=== PATIENT | female | born 1940 | race Caucasian/White ===

== ENCOUNTER 2016-11-15 14:27 | Inpatient (IN) | payer MEDICARE ==
[2016-11-15] VITALS (11 sets, daily range): BP systolic 134–157; BP diastolic 49–99; PULSE 66–141; RESP 15–20; O2SAT 95–99
[~2016-11-15] VITALS: Ht 165.1 cm; Wt 88.3 kg
[~2016-11-15 14:27] MED LIST: ALPR.25T PO; AMLO-39 PO; AZIT250T2 PO; LISI1TAB PO; METO50TA PO; MULT-64 PO
--- NOTE | 2016-11-15 15:04 | ED.REPORT ---
HPI-Chest Pain 40 and Over Date of Service Nov 15, 2016 ED Provider: Tra Barber MD Pt is a 76 y/o female w/ a hx of HTN presenting to the ED c/o fatigue onset 2 days ago. She c/o associated mild heart palpitations. Pt denies SOB, CP, nausea , vomiting. She has no diagnosed history of atrial fibrillation, is not anticoagulated, and does not drink alcohol. She has a family history of a-fib. Nursing Notes Stated Complaint: IRREGULAR HEART RHYTHM/SENT FROM [facility] Chief Complaint: Dysrhythmia/Cardiac Nursing Notes Reviewed: Yes Allergies: Coded Allergies: Sulfa (Sulfonamide Antibiotics) (Verified Allergy, Unknown, 11/15/16) Scheduled (["magnesium"]) Unknown Dose PO DAILY (["vit B"]) Unknown Dose PO DAILY (["thyroid supplement"]) Unknown Dose PO DAILY Amlodipine (Amlodipine) 10 Mg Tablet 10 MG PO DAILY Aspirin (Aspirin) 81 Mg Tablet 81 MG PO DAILY Losartan Potassium (Losartan Potassium) 50 Mg Tablet 50 MG PO DAILY Metoprolol Tartrate (Metoprolol Tartrate) 50 Mg Tablet 50 MG PO BID Scheduled PRN Alprazolam (Alprazolam) 0.25 Mg Tablet 0.25 MG PO BID PRN PRN For Anxiety General Time Seen by MD: 15:03 Chief Complaint Other (fatigue) Hx Obtained From: Patient Arrived By: Walk-in Sudden in Onset?: No Onset Occurred: 2 days ago Symptom Duration: Since onset Severity: Current: No pain currently Severity: Maximum: No pain Recent Healthcare: No recent hospitalization Similar Sx Previous: No Past Medical History Past Medical History Hypertension Probable COPD Hx pneumonia Hx UTI Depression Anxiety Past Surgical History Cataract Smoking History Never Smoker Ambulatory Status Independent Review of Systems Constitutional: Reports: Fatigue Respiratory: Denies: Shortness of breath Cardiovascular: Reports: Palpitations, Denies: Chest pain GI: Denies: Abdominal pain, Nausea, Vomiting Complete sys rev & neg: except as marked. Physical Exam Initial Vital Signs Vital Signs (First) Date Time Temp Pulse Resp B/P Pulse Ox O2 Delivery O2 Flow Rate FiO2 11/15/16 14:31 36.9 135 15 152/89 98 Room Air Initial VS: Reviewed, Vital signs abnormal Head / Eyes: Atraumatic, Normocephalic ENT: Mucous membranes moist, Conjunctiva normal, No scleral icterus Neck: Supple, Full range of motion Extremities: Vascular intact, Neuro intact, No swelling Skin: Warm, Dry, No cyanosis Neurologic: Alert, Oriented, Nonfocal Psychiatric: Mood/affect normal, Behavior normal, Normal thought content General/Constitutional: Awake, Alert, No acute distress, Well appearing, Cooperative, Not toxic appearing Respiratory / Chest: Breath sounds NL, Breath sounds = bilat, No respiratory distress, No rales, No rhonchi, No wheezing Cardiovascular: Heart sounds NL Heart Rate / Rhythm: Positive: Irreg irregular rhythm, Tachycardia Abdomen: Atraumatic, Soft, Non-tender Interpretation & Diagnostics Lab Results Interpretation Result Diagram: 11/15/16 1522 11/15/16 1522 Test 11/15/16 15:01 11/15/16 15:22 11/15/16 15:29 11/15/16 17:16 Thyroid Stimulating Hormone (TSH) 3.030uIU/mL (0.450-4.500) Free Thyroxine 1.25ng/dL (0.82-1.77) White Blood Count 9.8th/mm3 (3.8-10.1) Red Blood Count 4.44mil/mm3 (3.90-5.20) Hemoglobin 14.1g/dL (12.0-15.6) Hematocrit 42.3% (35.0-46.0) Mean Corpuscular Volume 95.3fL (81-100) Mean Corpuscular Hemoglobin 31.8pg (27.0-35.0) Mean Corpuscular Hemoglobin Concent 33.3% (32.0-37.0) Red Cell Distribution Width 12.5% (12.3-15.4) Platelet Count 274bil/L (150-400) Neutrophils (%) (Auto) 66.7% (40-74) Lymphocytes (%) (Auto) 19.1% (14-46) Monocytes (%) (Auto) 12.8% (4-12) Eosinophils (%) (Auto) 0.9% (0-5) Basophils (%) (Auto) 0.3% (0-3) Sodium Level 132mEq/L (134-144) Potassium Level 4.5mEq/L (3.5-5.2) Chloride Level 91mEq/L (97-108) Carbon Dioxide Level 22mmol/L (18-29) Blood Urea Nitrogen 16mg/dL (8-27) Creatinine 0.61mg/dL (0.57-1.00) Estimat Glomerular Filtration Rate 137mL/min (>59) Glucose Level 111mg/dL (60-99) Calcium Level 10.2mg/dL (8.5-10.1) Magnesium Level 2.0mg/dL (1.6-2.6) Total Bilirubin 0.4mg/dL (0.0-1.2) Aspartate Amino Transf (AST/SGOT) 23U/L (0-50) Alanine Aminotransferase (ALT/SGPT) 19U/L (0-32) Alkaline Phosphatase 86U/L (25-165) Troponin T < 0.010ug/L (0.0-0.011) Total Protein 8.1g/dL (6.4-8.4) Albumin 4.7g/dL (3.4-5.0) Hold Urine Received (Received) Urine Color Yellow (YELLOW) Urine Appearance Clear (CLEAR,HAZY) Urine pH 6.0 (5.0-8.0) Urine Specific [place] 1.020 (1.003-1.035) Urine Protein Tracemg/dL (NEG,TRACE) Urine Glucose (UA) Negativemg/dL (NEGATIVE) Urine Ketones Negativemg/dL (NEGATIVE) Urine Occult Blood Trace (NEGATIVE) Urine Nitrite Negative (NEGATIVE) Urine Bilirubin Negative (NEGATIVE) Urine Urobilinogen Normalmg/dL (NORMAL) Urine Leukocyte Esterase Negative (NEGATIVE) Urine RBC 3-10/hpf (0-2) Urine WBC 0-5/hpf (0-5) Urine Epithelial Cells Moderate/hpf (NONE-MOD) Urine Crystals None seen (NONE SEEN) Urine Bacteria Few/hpf (NONE-FEW) Urine Hyaline Casts None/lpf (NONE) Urine Granular Casts None seen (NONE SEEN) Urine Waxy Casts None seen (NONE SEEN) Urine Red Blood Cell Casts None seen (NONE SEEN) Urine White Blood Cell Casts None seen (NONE SEEN) Urine Mucus Present (None Seen) Urine Trichomonas None seen (NONE SEEN) Urine Yeast None (NONE SEEN) Urinalysis Comment None Urine Culture Reflexed Not indicated ECG Interpretation ECG Interpretation: Atrial fibrillation with RvR rate 129 Time: 15:05 Interpreted by: ED physician Normal ECG Interpretation: No acute ischemic changes X-Ray Chest Interpretation Chest Xray Interpretation: IMPRESSION: No CHF found, mildly reduced inspiratory volume. Dictated by: Itz Hernandez M.D. on 11/15/2016 at 16:37 Approved by: Itz Hernandez M.D. on 11/15/2016 at 16:37 View: Portable, 1 view Interpretation / Wet Read by: Interpret - Radiologist Re-Eval/Medical Decision Med Decision/Clinical Course 76-year-old female history of hypertension presenting with palpitations and fatigue for several days. On arrival she was in atrial fibrillation with RVR. She was given multiple doses of diltiazem with no improvement. She was placed on a diltiazem drip and admitted to the hospital for age of fibrillation with RVR. This is a new diagnosis of atrial fibrillation. Placed on a heparin drip. Time of Eval: 15:48 Re-Evaluation/Progress Note: Pt rechecked. After 10 mg Diltiazem rate still in 120s. BP stable. Time of Eval: 16:25 Re-Evaluation/Progress Note: Pt rechecked. HR remains 120 despite more Diltiazem. Informed pt of need for admission. Pt understands and agrees with plan for admission. All questions addressed. Consultation : Referral / Consult Name: Bryanna Triplett Mark MONCADA Consulted With: Hospitalist Call Returned at: 17:03 Bag End Sewer: Will see patient, Agrees with eval, Agrees with plan, Accepts admit Counseled Regarding: Diagnosis, Lab results, Need for admission Discharge & Departure Primary Impression: Atrial fibrillation with rapid ventricular response Additional Impression: New onset atrial fibrillation Disposition: ADMITTED TO HOSPITAL Discharge Condition All VS Reviewed: Yes Condition: Stable Referrals: Miguelangel Fitzpatrick MD (PCP) Crit Care Except Billable Proc Time Spent: 30-74 minutes Services Performed: Patient management by me, Time spent at bedside, Reviewing test results, Reviewing imaging, Discussing patient care, Documentation in record, Time with fam/surrogate Critical Care Notes: 45 minutes, requiring diltiazem drip Scribe Attestation Portions of this note were transcribed by Contreras Atkinson. I, Dr. Barber personally performed the history, physical exam and medical decision-making; I reviewed and confirmed the accuracy of the information in the transcribed note. copies to: Miguelangel Fitzpatrick MD, Ben M MD Nov 15, 2016 15:04 CONTRERAS ATKINSON Nov 15, 2016 15:11
[2016-11-15] MEDS ORDERED: Diltiazem 5 mg/mL 5 mL Inj IVPUSH ONE ×2 (15:15→15:50)
[2016-11-15 15:25] LABS: BASOPHILS % (AUTO) 0.3 % (0-3); EOSINOPHILS % (AUTO) 0.9 % (0-5); MONOCYTES % (AUTO) 12.8 % (4-12); Mean Corpuscular Hemoglobin 31.8 pg (27.0-35.0); Mean Corpuscular Volume 95.3 fL (81-100); NEUTROPHILS % (AUTO) 66.7 % (40-74); Platelet Count 274 bil/L (150-400)
[2016-11-15 15:50] LABS: TROPONIN T < 0.010 ug/L (0.0-0.011)
--- NOTE | 2016-11-15 16:38 | DRSVH ---
PROCEDURE: X-RAY CHEST ONE VIEW, PORTABLE ([id number]) INDICATIONS: irregular heart rate TECHNIQUE: One view of the chest was acquired. COMPARISON: [facility], , CHEST 1VW (PORTABLE), 06/22/2010, 23:37. FINDINGS: Surgical changes and devices: None. Lungs and pleura: No pleural effusions or pneumothorax. Lungs are clear. Mediastinum: Mediastinal contours appear normal. Heart size is normal. Bones and chest wall: No suspicious bony lesions. Overlying soft tissues appear unremarkable. IMPRESSION: No CHF found, mildly reduced inspiratory volume. Dictated by: Itz Hernandez M.D. on 11/15/2016 at 16:37 Approved by: Itz Hernandez M.D. on 11/15/2016 at 16:37
[2016-11-15] MEDS ORDERED: Diltiazem Inj 125 MG in Dextrose 5% 100 ML IV SCH (16:51)
[2016-11-15] MEDS ORDERED: Ondansetron 2 mg/mL 2 mL Inj IVPUSH PRN ×2 (17:15→18:05)
[2016-11-15] MEDS ORDERED: Alum-Mag Hydrox-Simeth 30 mL Suspension PO PRN ×2 (17:15→18:05)
[2016-11-15 17:35] LABS: APPEARANCE,URINE CLEAR (CLEAR,HAZY); COLOR,URINE YELLOW (YELLOW); UROBILINOGEN,URINE NORMAL (NORMAL)
[2016-11-15 17:36] LABS: OCCULT BLOOD,URINE TRACE (NEGATIVE)
[2016-11-15] MEDS ORDERED: Polyethylene Glycol (PEG) 17 Gm Powder PO PRN (18:05)
[2016-11-15] MEDS ORDERED: Diltiazem HCl 125 MG in 0.9% Sodium Chloride 100 ML, Pharmacy To Mix 1 EA IV SCH (18:05)
[2016-11-15] MEDS ORDERED: [UNRECOGNIZED DRUG - REMARK] PO PRN (18:10)
--- NOTE | 2016-11-15 18:10 | NUR ---
Admission note Report received from Stefan QUISPE. Patient arrived via wheelchair to room 2002. Patient oriented to room and use of call light. Patient verbalized understanding. Patient Alert and oriented x3. Patient has IV Diltiazem at 5mg/hr. Pt Afib 90s-120s at this time. Ongoing care.
--- NOTE | 2016-11-15 18:19 | PCM.HPMED ---
Subjective Date of Service Nov 15, 2016 Primary Provider: Admitting Physician: Bryanna Triplett DO Primary Care Physician: Vandana Vásquez Attending Physician: Bryanna Triplett DO Admit Status: From the Emergency Department Chief Complaint: Shortness of breath and fatigue History of Present Illness: Iris Mancia is a 76 year old woman with a PMH of HTN, likely COPD, depression, and anxiety who presents with new onset fatigue for the past 2 days. She relates that she has found it more difficult to conduct her daily activities, and that no amount of rest seems to help. She denies chest pain, reports only mild palpitations, denies nausea, vomiting, diarrhea, fevers, chills, or productive cough. She relates that her mother had Afib for many years. In the ED the patient was found to be in Afib with RVR which was unresponsive to IV cardizem x2, thus a Diltiazem drip was initiated which achieved rate control around 100 BPM without adverse effects. The patient is adamant that she is DNR/DNI, and will never take "rat poison" (Warfarin), but would be amenable to a NOAC, and potentially to cardioversion should that be likely to work. Of note the patient reports that her seasonal allergies have been worse of late, and that she usually takes Zyrtec, but 2 days ago took Sudafed. Review of Systems: Comprehensive ROS negative except as outlined above. Allergies Coded Allergies: Sulfa (Sulfonamide Antibiotics) (Verified Allergy, Unknown, 11/15/16) Home Medications Scheduled AmLODIPine-Expunged Drug, Do Not Renew! (AmLODIPine-Expunged Drug, Do Not Renew! ) 5 Mg Tablet 5 MG PO DAILY Azithromycin (Azithromycin) 250 Mg Tablet 250 MG PO DAILY Lisin/HCTZ-Expunged, Do Not Renew! (Lisin/HCTZ 20/12.5-Expunged, Do Not Renew!) 1 Tab Tablet 1 TAB PO DAILY Metoprolol Tart-Expunged Drug, Do Not Renew! (Metoprolol Tart-Expunged Drug, Do Not Renew!) 50 Mg Tablet 50 MG PO BID Multivitamins-Expunged Drug, Do Not Renew! (Multivitamins-Expunged Drug, Do Not Renew!) 1 Each Tab.chew 1 EACH PO DAILY Scheduled PRN Alprazolam-Expunged Drug, Do Not Renew! (Alprazolam-Expunged Drug, Do Not Renew! ) 0.25 Mg Tablet 0.25 MG PO BID PRN PRN PMH Hypertension Probable COPD Hx pneumonia Hx UTI Depression Anxiety Surgical History Cataract surgery Family History Mother with Afib Social History Hx Alcohol Use: No Hx Substance Use: No Hx Tobacco Use: No Smoking Status: Never Smoker Living Arrangement: Independent Prison Exam Vital Signs Vital Sign - Last Date Time Temp Pulse Resp B/P Pulse Ox O2 Delivery O2 Flow Rate FiO2 11/15/16 17:35 125 20 156/99 99 Room Air 11/15/16 14:31 36.9 Exam Gen: A/O pleasant elderly woman in NAD Neck: Supple, non tender, no JVD, full ROM HEENT: prominent facial hair, PERRL, EOMI, no scleral icterus, no conjunctival pallor CV: Irregularly irregular with no murmurs rubs or gallops Resp: Lungs CTA BL, no wheezing rales or rhonchi Abd: No rebound guarding tenderness or masses Extr: No clubbing cyanosis or edema Neuro: CN 2-12 grossly intact, no focal neurologic deficit Psych: Pleasant and appropriate mood and affect. Lab and Diagnostics Labs Item Value Date Time Red Blood Count 4.44 mil/mm3 11/15/16 1522 Mean Corpuscular Volume 95.3 fL 11/15/16 1522 Mean Corpuscular Hemoglobin 31.8 pg 11/15/16 1522 Mean Corpuscular Hemoglobin Concent 33.3 % 11/15/16 1522 Red Cell Distribution Width 12.5 % 11/15/16 1522 Neutrophils (%) (Auto) 66.7 % 11/15/16 1522 Lymphocytes (%) (Auto) 19.1 % 11/15/16 1522 Monocytes (%) (Auto) 12.8 % H 11/15/16 1522 Eosinophils (%) (Auto) 0.9 % 11/15/16 1522 Basophils (%) (Auto) 0.3 % 11/15/16 1522 Estimat Glomerular Filtration Rate 137 mL/min 11/15/16 1522 Calcium Level 10.2 mg/dL H 11/15/16 1522 Magnesium Level 2.0 mg/dL 11/15/16 1522 Total Bilirubin 0.4 mg/dL 11/15/16 1522 Aspartate Amino Transf (AST/SGOT) 23 U/L 11/15/16 1522 Alanine Aminotransferase (ALT/SGPT) 19 U/L 11/15/16 1522 Alkaline Phosphatase 86 U/L 11/15/16 1522 Troponin T < 0.010 ug/L 11/15/16 1522 Total Protein 8.1 g/dL 11/15/16 1522 Albumin 4.7 g/dL 11/15/16 1522 Result Diagram: 11/15/16 1522 11/15/16 1522 X-Rays, CTs and MRIs X-RAY CHEST ONE VIEW, PORTABLE IMPRESSION: No CHF found, mildly reduced inspiratory volume. Dictated by: Itz Hernandez M.D. on 11/15/2016 at 16:37 Approved by: Itz Hernandez M.D. on 11/15/2016 at 16:37 . 12-lead ECG Atrial fibrillation with RvR rate 129 . Assessment & Plan Iris Mancia is a 76 year old patient with a PMH of HTN, and likely COPD who presents with 2 days of fatigue not relieved by rest, found to have Afib with RVR in the ED and admitted for initiation of rate control and anti- coagulation. New onset Afib with RVR, POA, acute. Active -Likely secondary to longstanding HTN, familial disposition, use of Sudafed, or some combination of the these -Diltiazem drip to establish rate control -[id number] score of 4, patient is adamant that she does not want Warfarin -Start Xarelto or another NOAC -Tele monitoring -Continue home Metoprolol -ECHO tomorrow to assess cardiac structure HTN, POA, chronic. Active -Dilt drip as above -Continue home Lisinopril -Hold home Amlodipine as this would be redundant with Dilt -Hold home diuretic to avoid hypotension Anxiety, POA, chronic. Active -Continue home Xanax PRN Allergic Rhinitis, POA, chronic. stable -Consider Zyrtec should patient become symptomatic Patient status: Inpatient, anticipated length of stay > 2 midnights due to severity of condition and complexity of treatment plan. Pain Evaluation: Adequate Pain Control GI Prophylaxis: Not indicated VTE Prophylaxis: Other (Xarelto) Resuscitation Status: DNR/DNI:Do Not Resuscitate/Intubate (xare) Time spent 60 minutes Attending Statement The patient was seen and examined together with Dr. Kelley on 11/15/16 and I have added additional information to the note above. Arben Kelley DO Nov 15, 2016 18:19 Bryanna Triplett DO Nov 16, 2016 15:21
[2016-11-15] MEDS ORDERED: [UNRECOGNIZED DRUG - REMARK] PO (20:03)
[2016-11-15] MEDS ORDERED: ALPR0.254 PO (20:08)
[2016-11-15] MEDS ORDERED: METO50TA3 PO (20:08)
[2016-11-15] MEDS ORDERED: [UNRECOGNIZED DRUG - REMARK] PO (20:08)
[2016-11-15] MEDS ORDERED: ASPI-973 PO (20:08)
[2016-11-15] MEDS ORDERED: [UNRECOGNIZED DRUG - REMARK] PO (20:08)
[2016-11-15] MEDS ORDERED: [UNRECOGNIZED DRUG - REMARK] PO (20:08)
[2016-11-15] MEDS ORDERED: AMLO10TA3 PO (20:08)
[2016-11-15] MEDS ORDERED: LOSA50TA37 PO (20:08)
[2016-11-15] MEDS: Dabigatran 150 mg Capsule PO SCH (20:20)
[2016-11-15] MEDS: ALPRAZolam 0.25 mg Tablet PO PRN (22:48)
[2016-11-16] VITALS (10 sets, daily range): BP systolic 144–150; BP diastolic 44–56; PULSE 61–80; RESP 16–21; O2SAT 96–98
--- NOTE | 2016-11-16 01:08 | NUR ---
Admit: Admission assessment completed via pt interview. Med rec updated via pt interview and Dr. Blood made aware of changes.
--- NOTE | 2016-11-16 01:09 | NUR ---
Conversion to SR: Start of shift Diltizem gtt increased to 10mg/hr as Tele was reading Afib in the 140s. Shortly after @1945 pt converted to SR 60-70s.Gtt decreased to 5mg/hr. Dr. Blood made aware of conversion to SR. states to continue Diltizem gtt overnight and hold HS Metoprolol.
[2016-11-16] MEDS ORDERED: [UNRECOGNIZED DRUG - REMARK] PO SCH (08:30)
[2016-11-16] MEDS ORDERED: [UNRECOGNIZED DRUG - REMARK] PO SCH (08:30)
[2016-11-16] MEDS: Dabigatran 150 mg Capsule PO SCH ×2 (09:28→21:26)
--- NOTE | 2016-11-16 10:10 | NUR ---
Social Work: Initial Assessment Data: Pt is a 76 y/o female admitted for afib with RVR. Pt's PCP is Dr Vásquez. Pt's insurance is [employer] [place] Medicare. EMR reviewed. Readmit score is 3. BILLIARD TABLE ASSEMBLER met with pt at bedside, role explained. Pt states she lives in [place] with her daughter in a single story home with 5 steps to enter. Pt drives, has no DME, has no hx of HH or SNF, no LTC or VA benefits and is not a caregiver. Pt states one of her children will drive her home at d/c. No d/c planning needs identified at this time. BILLIARD TABLE ASSEMBLER will continue to follow if needs arise. Assessment: Pt who is independent at baseline. Plan: Pt will d/c home via POV when medically stable, BILLIARD TABLE ASSEMBLER will follow for possible d/c needs. No d/c planning needs identified at this time. BILLIARD TABLE ASSEMBLER will continue to follow if needs arise. DELMAR Wong Addendum: 11/16/16 at 1012 by PEYMAN CARRILLO Amended: Links added.
[2016-11-16] MEDS ORDERED: 0.9% Sodium Chloride 500 ML IV ONE (11:20)
[2016-11-16] MEDS ORDERED: PRAV20TA2 PO (16:37)
[2016-11-16] MEDS ORDERED: CETI10CA PO (16:37)
--- NOTE | 2016-11-16 17:36 | DRSVH ---
[facility] [address] [place] [address] Echocardiogram Report Name: MAXX ANDINO KStudy Date: 01/2017 Height: 65 in Hospital Exam Location: [facility] Weight: 19 5 lb Gender: Female BSA: 2.0 m2 : 1940 Age: 76 yrs BP: 148/56 mmHg Reason For Study: Atrial fibrillation Ordering Physician: Performed By: Jana Birch Referring Physician: MAURICE ZAMORA Interpretation Summary The left ventricle is normal in size. The left ventricle is hyperdynamic. The ejection fraction is estimated to be 70-75%. The right ventricle is grossly normal size. The right ventricular systolic function is normal. There is mild mitral regurgitation. Compared to the prior echo study, there has been no change in the severity of mitral regurgitation. The aortic valve is not well visualized. The aortic valve is moderately calcified. The peak aortic velocity is 2.7 m/sec. The aortic valve mean gradient is 16 mmHg. The peak aortic velocity on the previous exam was 2.5 m/sec. There is mild aortic stenosis. There is trace tricuspid regurgitation. Compared to the prior echo exam, there has been a decrease in TR severity. The right ventricular systolic pressure is estimated at least 44 mmHg assuming a right atrial pressure of 8 mm Hg. Compared to the prior echo exam, there has been a decrease in the severity of pulmonary hypertension. Procedure: A two-dimensional transthoracic echocardiogram with color flow and Doppler was performed. The study quality was technically adequate. Images from the parasternal window were difficult to obtain and are suboptimal in quality. Comparison is made with the echocardiogram of 07/30/14. The patient was in normal sinus rhythm during the exam. Left Ventricle: There is moderate proximal septal thickening noted. The left ventricle is normal in size. There is no echo evidence for significant left ventricular outflow tract obstruction. There is no thrombus. The ejection fraction is estimated to be 70-75%. The left ventricle is hyperdynamic. There are no focal wall motion abnormalities. E/A ratio is reversed and E/E' ratio is abnormal. Right Ventricle: The right ventricle is grossly normal size. The right ventricular systolic function is normal. Atria: The left atrium is mildly dilated. The left atrium has remained unchanged in size since the prior echo exam. Right atrial size is normal. There is no Doppler evidence for an interatrial shunt. Mitral Valve: There is moderate to severe mitral annular calcification. The mitral valve leaflets are mildly calcified. No significant mitral valve stenosis. There is mild mitral regurgitation. Compared to the prior echo study, there has been no change in the severity of mitral regurgitation. Aortic Valve: The aortic valve is not well visualized. The aortic valve is moderately calcified. There is mild aortic stenosis. The peak aortic velocity is 2.7 m/sec. The peak aortic velocity on the previous exam was 2.5 m/sec. The aortic valve mean gradient is 16 mmHg. No aortic regurgitation is present. Tricuspid Valve: The tricuspid valve is not well visualized, but is grossly normal. There is trace tricuspid regurgitation. The right ventricular systolic pressure is estimated at least 44 mmHg assuming a right atrial pressure of 8 mm Hg. Compared to the prior echo exam, there has been a decrease in TR severity. Compared to the prior echo exam, there has been a decrease in the severity of pulmonary hypertension. Pulmonic Valve: The pulmonic valve is not well visualized. There is no pulmonic valvular regurgitation. Great Vessels: The aortic root is normal size. There is aortic root sclerosis/calcification. The ascending aorta is normal in size. The aortic arch is normal in size. The pulmonary is not well visualized. The IVC is dilated (diameter is greater than 2.1 cm) yet it collapses greater than 50% with a sniff. This suggests a right atrial pressure of 8 mm Hg. Pericardium/ Pleura There is no pericardial effusion. There is no pleural effusion. MMode/2D Measurements & Calculations LVIDd: 4.4 cm RA long axis LVOT diam: 2.0 cm LVIDs: 2.8 cm LA A2 area: 22.9 cm AoV Opening FS: 35.3 % LA A4 area: 19.4 cm RA area EPSS: 0.25 cm LA length (vol) Ao root diam IVSd: 1.5 cm : 16.5 cm LVPWd: 1.0 cm LA vol: 70.4 ml RA vol asc Aorta Diam LA vol index : 45.2 ml RA Ao Arch Diam (Prox : 23.1 mm2 Trans): 2.3 cm IVC diam: 2.3 cm LV melendez. diameter/BSA LV sys. diameter/BSA RVD1 (basal) TAPSE: 2.6 cm (cm/m^2): 2.2 (cm/m^2): 1.4 Doppler Measurements & Calculations Ao V2 max MV E max valeriano MV E/A: 0.89 TR max valeriano : 268.9 cm/sec : 123.1 cm/sec Med Peak E' Valeriano : 301.0 cm/sec Ao max PG MV A max valeriano TR max P.2 mmHg : 28.9 mmHg : 139.0 cm/sec E/E' med: 18.0 PA Accel Time Ao mean PG Lat Peak E' Valeriano : 0.28 sec : 15.9 mmHg MVA(VTI): 2.7 cm2 LVOT Max Valeriano E/E' lat: 14.1 : 160.1 cm/sec E/e' average KALANI(I,D): 2.3 cm sev ratio MV V2 mean Ao V2 mean LV V1 max PG KALANI indexed to BSA : 93.1 cm/sec : 186.2 cm/sec (cm^2/m^2): 1.2 MV mean PG Ao V2 VTI: 53.7 cm LV V1 VTI KALANI(V,D): 1.9 cm2 : 39.3 cm MV V2 VTI: 46.5 cm MV dec time : 0.28 sec Reading Physician:LIMA
--- NOTE | 2016-11-16 17:42 | NUR ---
Cardiac pt switched to PO Diltiazem 60mg Q6hrs. Pt tolerating well at this time. Tele SR 60-80s through the day per refinish technician. No c/o chest pain or dizziness. Ongoing care.
--- NOTE | 2016-11-16 17:45 | PCM.PNMED ---
Subjective Date of Service Nov 16, 2016 Subjective Subjective: Patient sitting up in bed and tearful on exam. She has remained in sinus rhythm since the diltiazem drip was initiated. She states that she has no symptoms currently. Events Overnight: No acute events overnight. ROS: Denies fever/chills, nausea/vomiting, headache, weakness, abdominal pain, chest pain, shortness of breath, increased swelling in hands or feet. Exam Vital Signs Vital Sign - Last Date Time Temp Pulse Resp B/P Pulse Ox O2 Delivery O2 Flow Rate FiO2 11/16/16 16:16 36.9 75 20 148/48 97 Room Air Intake and Output 11/15/16 11/15/16 11/16/16 Cumulative From/Thru 15:00 23:00 07:00 11/15/16 14:31 - 11/16/16 05:34 Intake Total 740 ml 740 ml Output Total 1200 ml 1200 ml Balance -460 ml -460 ml Intake Oral 700 ml 700 ml IV Total 40 ml 40 ml Output Urine Total 1200 ml 1200 ml # Voids 2 2 Exam General: No acute distress, well-developed, well-nourished HEENT: Normocephalic, atraumatic. External ears without defect. Pupils equal, round, and reactive to light and accommodation. Anicteric sclerae, moist conjunctivae. Cardiovascular: Heart sounds best auscultated on the right side. Regular rate and rhythm with systolic murmur, no rubs or gallops appreciated Pulmonary: Clear to auscultation bilaterally with no crackles, wheezes, or rhonchi. Normal respiratory effort with no use of accessory muscles. Abdomen: Bowel tones present. Soft, nontender, nondistended. Extremities: No clubbing, cyanosis, edema Skin: Normal temperature, turgor, and texture; no rash, ulcers, or subcutaneous nodules appreciated. Neurological: Cranial nerves grossly intact. Reflexes, coordination, and sensory function within normal limits. Normal muscle strength, tone, and bulk. Psychiatric: Normal mood and affect. Alert and oriented to person, place, and time IVs and Medications IV Fluids 625 mL normal saline diluted with IV medications. Medications Reviewed: Medications were reviewed in detail Medications High-risk medications include: Diltiazem drip Alprazolam Lab and Diagnostics Result Diagram: 11/15/16 1522 11/15/16 1522 X-Rays, CTs and MRIs X-RAY CHEST ONE VIEW, PORTABLE IMPRESSION: No CHF found, mildly reduced inspiratory volume. Dictated by: Itz Hernandez M.D. on 11/15/2016 at 16:37 Approved by: Itz Hernandez M.D. on 11/15/2016 at 16:37 . 12-lead ECG Atrial fibrillation with RvR rate 129 . Cardiac Echo Impressions Echocardiogram Interpretation Summary The left ventricle is normal in size. The left ventricle is hyperdynamic. The ejection fraction is estimated to be 70-75%. The right ventricle is grossly normal size. The right ventricular systolic function is normal. There is mild mitral regurgitation. Compared to the prior echo study, there has been no change in the severity of mitral regurgitation. The aortic valve is not well visualized. The aortic valve is moderately calcified. The peak aortic velocity is 2.7 m/sec. The aortic valve mean gradient is 16 mmHg. The peak aortic velocity on the previous exam was 2.5 m/sec. There is mild aortic stenosis. There is trace tricuspid regurgitation. Compared to the prior echo exam, there has been a decrease in TR severity. The right ventricular systolic pressure is estimated at least 44 mmHg assuming a right atrial pressure of 8 mm Hg. Compared to the prior echo exam, there has been a decrease in the severity of pulmonary hypertension. Reading Physician:PM . Assessment & Plan Iris Mancia is a 76 year old patient with a PMH of HTN, and likely COPD who presents with 2 days of fatigue not relieved by rest, found to have Afib with RVR in the ED and admitted for initiation of rate control and anti- coagulation. New onset Afib with RVR, POA, acute. Active -Likely secondary to longstanding HTN, familial disposition, use of Sudafed, or some combination of the these -Diltiazem drip to establish rate control, discontinued today and switch to diltiazem PO -Lenen6Hpth score of 4, patient started on Pradaxa -Continue Tele monitoring -Continue home Metoprolol -Echo showed ejection fraction 70-75% further details as above. HTN, POA, chronic. Active -Dilt drip, discontinued in favor of PO every 6hrs, patient will be sent home with diltiazem ER every 12 -Continue home Lisinopril -Hold home Amlodipine as this would be redundant with Dilt -Hold home diuretic to avoid hypotension Anxiety, POA, chronic. Active -Continue home Xanax PRN Allergic Rhinitis, POA, chronic. stable -Consider Zyrtec should patient become symptomatic Of note: Had questions concerning a "thyroid" medication which was prescribed by her chiropractor. Thyroid panel negative for signs of thyroid disease. Not recommended that she continue taking this medication as it may have led to her current condition. Disposition: If patient remains in sinus rhythm for the next 24 hours on PO therapy she may be discharged home at that point GI Prophylaxis: Not indicated VTE Prophylaxis: Other (Xarelto) Resuscitation Status: DNR/DNI:Do Not Resuscitate/Intubate (xare) Attending Statement The patient was seen and examined together with Dr. Jenkins on 11/16/16 and I have added additional information to the note above. Jose E Jenkins DO Nov 16, 2016 17:45 Bryanna Triplett DO Nov 17, 2016 18:43
[2016-11-17] VITALS (8 sets, daily range): BP systolic 134–158; BP diastolic 46–55; PULSE 61–88; RESP 14–19; O2SAT 96–98
[2016-11-17 02:45] LABS: Mean Corpuscular Hemoglobin 31.6 pg (27.0-35.0); Mean Corpuscular Volume 95.7 fL (81-100)
--- NOTE | 2016-11-17 05:43 | NUR ---
Rhythm Stable: Pt stable throughout the night in a NSR in the 60s to 70s receiving PO diltiazem every 6 hours. No complaints per pt during the night except for some neck pain which resolved with Tylenol and repositioning. Pt noted to be up frequently to the [facility] to void.
[2016-11-17] MEDS ORDERED: Diltiazem CD 120 mg ER24 Capsule PO SCH (08:30)
[2016-11-17] MEDS: Dabigatran 150 mg Capsule PO SCH (08:53)
[2016-11-17] MEDS ORDERED: DILT120C83 PO (10:43)
--- NOTE | 2016-11-17 10:57 | PCM.DIMED ---
Jose E Jenkins DO 11/17/16 1057: Discharge Instructions Date of Service Nov 17, 2016 Dates of Hospitalization Nov 15, 2016 at 18:00 Discharge Diagnosis Discharge Diagnosis New onset Afib with RVR, POA, acute. Active HTN, POA, chronic. Active Anxiety, POA, chronic. Active Allergic Rhinitis, POA, chronic. stable Medication Instructions Additional med instructions Please stop the thyroid supplement as previously prescribed as well as your home dose of amlodipine for now. Please continue to take Diltiazem 120mg twice per day as well as Pradaxa 150mg twice per day. Test Results Test Results A chest X-ray completed here showed mildly decreased lung volumes, however, no evidence of congestive heart failure. your echo cardiogram shows ejection fraction to be 70-75% (normal 60-65%) and mild mitral regurgitation. With no change since the prior echo study Diet Discharge Diet: Heart Healthy Activity Discharge Activity: No restrictions Call your provider Call your provider for: Fever or Chills, Shortness of breath, Bleeding, Chest pain, Vomitting, Excessive diarrhea, Weakness (unilateral) Patient Instructions Patient Instructions Feel free to continue normal daily activities as tolerated. follow medication regimen as directed above. This is important to ensure that your heart rhythm stays normal. Continue healthy diet. Follow-up plan Please follow up with your primary care doctor within the next 1-2 weeks. Follow-up Provider: Vandana Vásquez Follow-up with PCP in: 2 weeks Bryanna Triplett DO 11/17/16 1505: Discharge Instructions Attending's Statement The patient was seen and examined together with Dr. Jenkins on 11/17/16 and I agree with the history, exam and plan as outlined in the note above. Jose E Jenkins DO Nov 17, 2016 10:57 Bryanna Triplett DO Nov 17, 2016 15:05
[2016-11-17] MEDS: ALPRAZolam 0.25 mg Tablet PO PRN (10:58)
[2016-11-17] MEDS ORDERED: DABI150C PO (11:32)
--- NOTE | 2016-11-17 11:50 | NUR ---
Social Work Note: Discharge Data& Assessment: Pt was discussed in multidisciplinary rounds this morning, Per pt is medically improved and ready to discharge home via POV. Iris Mancia is a 76 year old female admitted on 11/15/2016 for AFIB with RVR. Per MD pt is medically improved and ready to discharge home via POV. ELECTRONIC INDUCTION HARDENER met with pt and pt daughter Maria Victoria at bedside to confirm discharge plan and assess for any unmet needs. Pt daughter is transporting pt home today. Pt states she is ambulating independently to the [facility] and plans to obtain one privately after she is discharged as she recovers from this hospitalization. Pt feels she is at her baseline. Pt independent with self care during this hospitalization. Pt and pt daughter denies any needs. No other MD orders identified. All updated and agreeable to plan. Plan: Per pt is medically ready to discharge home via POV with family support. Pt and pt daughter denies any needs. No other MD orders identified. All updated and agreeable to plan. DELMAR Lipscomb
--- NOTE | 2016-11-17 14:32 | PCM.DC.MED ---
Discharge Summary Date of Service Nov 17, 2016 Dates of Hospitalization Date of Hospital Admission Nov 15, 2016 at 18:00 Date of Discharge: Nov 17, 2016 Providers: Admitting Physician: Bryanna Triplett DO Primary Care Physician: Vandana Vásquez Attending Physician: Bryanna Triplett DO Diagnosis at Time of Discharge Diagnosis at Time of Discharge New onset Afib with RVR, POA, acute. Resolved HTN, POA, chronic. Active Anxiety, POA, chronic. Active Allergic Rhinitis, POA, chronic. stable Procedures XRay, CTs & MRIs X-RAY CHEST ONE VIEW, PORTABLE IMPRESSION: No CHF found, mildly reduced inspiratory volume. Dictated by: Itz Hernandez M.D. on 11/15/2016 at 16:37 Approved by: Itz Hernandez M.D. on 11/15/2016 at 16:37 . ECG 12 Lead Atrial fibrillation with RvR rate 129 . Cardiac Echo Impression Echocardiogram Interpretation Summary The left ventricle is normal in size. The left ventricle is hyperdynamic. The ejection fraction is estimated to be 70-75%. The right ventricle is grossly normal size. The right ventricular systolic function is normal. There is mild mitral regurgitation. Compared to the prior echo study, there has been no change in the severity of mitral regurgitation. The aortic valve is not well visualized. The aortic valve is moderately calcified. The peak aortic velocity is 2.7 m/sec. The aortic valve mean gradient is 16 mmHg. The peak aortic velocity on the previous exam was 2.5 m/sec. There is mild aortic stenosis. There is trace tricuspid regurgitation. Compared to the prior echo exam, there has been a decrease in TR severity. The right ventricular systolic pressure is estimated at least 44 mmHg assuming a right atrial pressure of 8 mm Hg. Compared to the prior echo exam, there has been a decrease in the severity of pulmonary hypertension. Reading Physician:PM . Brief History Iris Mancia is a 76 year old woman with a PMH of HTN, likely COPD, depression, and anxiety who presents with new onset fatigue for the past 2 days. In the ED the patient was found to be in Afib with RVR which was unresponsive to IV cardizem x2, thus a Diltiazem drip was initiated which achieved rate control around 100 BPM without adverse effects. Pt was switched to oral Diltiazem which was tolerated well. She remained sinus for 24 hrs prior to DC. Pt was started on Pradaxa and will continue taking Diltiazem PO 120mg BID. Of note the patient called stating that her insurance company would not cover Pradaxa therefore the patient was changed to Eliquis. The patient will take 10 mg by mouth twice a day for 7 days and then switch to 5 mg by mouth twice a day daily. The patient has been given a free prescription card for 30 days and has been given the website in order to download a co-pay card. The patient will follow-up with her primary care physician in regards to this and for further management. The patient has also been recommended to follow up with cardiology in the next 4-6 weeks. Hospital Course Iris Mancia is a 76 year old patient with a PMH of HTN, and likely COPD who presents with 2 days of fatigue not relieved by rest, found to have Afib with RVR in the ED and admitted for initiation of rate control and anti- coagulation. New onset Afib with RVR, POA, acute. Active -Likely secondary to longstanding HTN, familial disposition, use of Sudafed, or some combination of the these -Diltiazem drip to establish rate control, discontinued 11/16 and switch to diltiazem PO -Eabfz4Hxlf score of 4, patient started on Eliquis -Initiated home Metoprolol prior to DC -Echo showed ejection fraction 70-75% further details as above. HTN, POA, chronic. Active -Dilt drip, discontinued in favor of PO every 6hrs, patient will be sent home with diltiazem ER every 12 -Continue home Lisinopril -Continue home metoprolol -Hold home Amlodipine as this would be redundant with Dilt -Hold home diuretic to avoid hypotension Anxiety, POA, chronic. Active -Continue home Xanax PRN Allergic Rhinitis, POA, chronic. stable -Consider Zyrtec should patient become symptomatic Of note: Had questions concerning a "thyroid" medication which was recommended by her chiropractor. Thyroid panel negative for signs of thyroid disease. Not recommended that she continue taking this medication as it may have led to her current condition. Exam Vital Signs (Last) Date Time Temp Pulse Resp B/P Pulse Ox O2 Delivery O2 Flow Rate FiO2 11/17/16 12:46 36.8 71 19 134/51 97 Room Air Exam General: No acute distress, well-developed, well-nourished HEENT: Normocephalic, atraumatic. External ears without defect. Pupils equal, round, and reactive to light and accommodation. Anicteric sclerae, moist conjunctivae. Cardiovascular: Heart sounds best auscultated on the right side. Regular rate and rhythm with systolic murmur, no rubs or gallops appreciated Pulmonary: Clear to auscultation bilaterally with no crackles, wheezes, or rhonchi. Normal respiratory effort with no use of accessory muscles. Abdomen: Bowel tones present. Soft, nontender, nondistended. Extremities: No clubbing, cyanosis, edema Skin: Normal temperature, turgor, and texture; no rash, ulcers, or subcutaneous nodules appreciated. Neurological: Cranial nerves grossly intact. Reflexes, coordination, and sensory function within normal limits. Normal muscle strength, tone, and bulk. Psychiatric: Normal mood and affect. Alert and oriented to person, place, and time Test 11/15/16 15:01 11/15/16 15:22 11/15/16 15:29 11/15/16 17:16 Thyroid Stimulating Hormone (TSH) 3.030uIU/mL (0.450-4.500) Free Thyroxine 1.25ng/dL (0.82-1.77) Neutrophils (%) (Auto) 66.7% (40-74) Lymphocytes (%) (Auto) 19.1% (14-46) Monocytes (%) (Auto) 12.8% (4-12) Eosinophils (%) (Auto) 0.9% (0-5) Basophils (%) (Auto) 0.3% (0-3) Magnesium Level 2.0mg/dL (1.6-2.6) Total Bilirubin 0.4mg/dL (0.0-1.2) Aspartate Amino Transf (AST/SGOT) 23U/L (0-50) Alanine Aminotransferase (ALT/SGPT) 19U/L (0-32) Alkaline Phosphatase 86U/L (25-165) Troponin T < 0.010ug/L (0.0-0.011) Total Protein 8.1g/dL (6.4-8.4) Albumin 4.7g/dL (3.4-5.0) Hold Urine Received (Received) Urine Color Yellow (YELLOW) Urine Appearance Clear (CLEAR,HAZY) Urine pH 6.0 (5.0-8.0) Urine Specific [place] 1.020 (1.003-1.035) Urine Protein Tracemg/dL (NEG,TRACE) Urine Glucose (UA) Negativemg/dL (NEGATIVE) Urine Ketones Negativemg/dL (NEGATIVE) Urine Occult Blood Trace (NEGATIVE) Urine Nitrite Negative (NEGATIVE) Urine Bilirubin Negative (NEGATIVE) Urine Urobilinogen Normalmg/dL (NORMAL) Urine Leukocyte Esterase Negative (NEGATIVE) Urine RBC 3-10/hpf (0-2) Urine WBC 0-5/hpf (0-5) Urine Epithelial Cells Moderate/hpf (NONE-MOD) Urine Crystals None seen (NONE SEEN) Urine Bacteria Few/hpf (NONE-FEW) Urine Hyaline Casts None/lpf (NONE) Urine Granular Casts None seen (NONE SEEN) Urine Waxy Casts None seen (NONE SEEN) Urine Red Blood Cell Casts None seen (NONE SEEN) Urine White Blood Cell Casts None seen (NONE SEEN) Urine Mucus Present (None Seen) Urine Trichomonas None seen (NONE SEEN) Urine Yeast None (NONE SEEN) Urinalysis Comment None Urine Culture Reflexed Not indicated Test 11/17/16 02:15 White Blood Count 8.1th/mm3 (3.8-10.1) Red Blood Count 3.93mil/mm3 (3.90-5.20) Hemoglobin 12.4g/dL (12.0-15.6) Hematocrit 37.6% (35.0-46.0) Mean Corpuscular Volume 95.7fL (81-100) Mean Corpuscular Hemoglobin 31.6pg (27.0-35.0) Mean Corpuscular Hemoglobin Concent 33.0% (32.0-37.0) Red Cell Distribution Width 12.4% (12.3-15.4) Platelet Count 236bil/L (150-400) Sodium Level 138mEq/L (134-144) Potassium Level 4.2mEq/L (3.5-5.2) Chloride Level 101mEq/L (97-108) Carbon Dioxide Level 27mmol/L (18-29) Blood Urea Nitrogen 17mg/dL (8-27) Creatinine 0.60mg/dL (0.57-1.00) Estimat Glomerular Filtration Rate 139mL/min (>59) Glucose Level 104mg/dL (60-99) Calcium Level 9.0mg/dL (8.5-10.1) Discharge Medications Discharge Medications (["magnesium"]) Unknown Dose PO DAILY (Reported) (["vit B"]) Unknown Dose PO DAILY (Reported) Aspirin (Aspirin) 81 Mg Tablet 81 MG PO DAILY (Reported) Cetirizine HCl (Zyrtec) 10 Mg Capsule 10 MG PO HS (Reported) Dabigatran Etexilate Mesylate (Pradaxa) 150 Mg Capsule 150 MG PO BID Prescribed by: LEIGHA OCAMPO DO Diltiazem ER (Cardizem CD) 120 Mg Cap.er.24h 120 MG PO BID Prescribed by: LEIGHA OCAMPO DO Losartan Potassium (Losartan Potassium) 50 Mg Tablet 50 MG PO DAILY (Reported) Metoprolol Tartrate (Metoprolol Tartrate) 50 Mg Tablet 50 MG PO BID (Reported) Pravastatin (Pravastatin) 20 Mg Tablet 20 MG PO HS (Reported) As needed Alprazolam (Alprazolam) 0.25 Mg Tablet 0.25 MG PO BID PRN PRN For Anxiety ( Reported) Additional med instructions Please stop the thyroid supplement as previously prescribed as well as your home dose of amlodipine for now. Please continue to take Diltiazem 120mg twice per day as well as Pradaxa 150mg twice per day. Followup Plan Disposition: home Follow-up plan Please follow up with your primary care doctor within the next 1-2 weeks. Discharge Diet: Heart Healthy Discharge Activity: No restrictions Patient Instructions Feel free to continue normal daily activities as tolerated. follow medication regimen as directed above. This is important to ensure that your heart rhythm stays normal. Continue healthy diet. Follow-up Provider: Vandana Vásquez Follow-up with PCP in: 2 weeks Follow-up in: 4 weeks (please follow up with cardiology. If you do not have a aircraft engine technician please discuss this with your primary care provider.) Time spent greater that 35 minutes spent in documentation and coordination of discharge Attending Statement The patient was seen and examined together with Dr. Ocampo on 11/17/16 and I have added additional information to the note above. copies to: Vandana Vásquez Adam J DO Nov 17, 2016 14:32 Bryanna Triplett Nov 17, 2016 18:52
--- NOTE | 2016-11-17 14:39 | NUR ---
Discharge of pt Reviewed discharge instructions with patient and patient's daughter, pt verbalized understanding. pt discharged via wheelchair with prescriptions and instructions. IV and Tele previously discontinued. Pt left hospital with daughter to home selfcare.
== END 2016-11-17 14:15 | disposition home or self-care (01) | DRG 310 ==
LOC: SED 14:27 → PCC 18:00
PROVIDERS: ADMIT Neuromusculoskeletal Medicine & OMM; ATTEND Neuromusculoskeletal Medicine & OMM
DX: I48.91 Unspecified atrial fibrillation (principal); I10 Essential (primary) hypertension; J30.9 Allergic rhinitis, unspecified; F41.9 Anxiety disorder, unspecified; Z79.82 Long term (current) use of aspirin; Z66 Do not resuscitate

== ENCOUNTER 2016-11-26 10:10 | Emergency (ER) | payer MEDICARE ==
[~2016-11-26] VITALS: Ht 165.1 cm; Wt 88.6 kg
[~2016-11-26 10:10] MED LIST changes: -ALPR.25T PO; +ALPR0.254 PO; -AMLO-39 PO; +ASPI-973 PO; -AZIT250T2 PO; +CETI10CA PO; +DABI150C PO; +DILT120C83 PO; -LISI1TAB PO; +LOSA50TA37 PO; -METO50TA PO; +METO50TA3 PO; -MULT-64 PO; +PRAV20TA2 PO; +[UNRECOGNIZED DRUG - REMARK] PO; +[UNRECOGNIZED DRUG - REMARK] PO
[2016-11-26 10:12] VITALS: BP 174/80; PULSE 69; RESP 16; O2SAT 99
[2016-11-26 10:36] VITALS: BP 153/45; PULSE 62; RESP 20; O2SAT 99
--- NOTE | 2016-11-26 11:06 | ED.REPORT ---
HPI-General Illness Date of Service Nov 26, 2016 ED Provider: Vipul Kamara MD Pt is a 76 y/o female anticoagulated on Eliquis w/ a hx of paroxysmal a-fib, HTN , presenting to the ED c/o hypertension (170 systolic) onset last night. She has been and currently is asymptomatic and is just concerned about her elevated blood pressure. She takes Metoprolol 50 mg BID. Pt denies CASTANEDA, vision changes, CP , SOB, abdominal pain, hematuria, bloody stools, focal weakness/numbness/ tingling, speech changes. She denies any inciting factors. It has been elevated since then without resolution. She has not tried to take change her dose. The patient was admitted to [facility] 11/15-11/17 after presenting with fatigue and was diagnosed with new-onset atrial fibrillation with RvR which resolved during admission. She was discharged on Eliquis. Last night the patient noticed that her blood pressure was elevated. She has a follow-up PCP appointment scheduled for tomorrow. Nursing Notes Stated Complaint: HIGH BP Chief Complaint: General Complaint Nursing Notes Reviewed: Yes Allergies: Coded Allergies: Sulfa (Sulfonamide Antibiotics) (Verified Allergy, Unknown, 11/15/16) Scheduled (["magnesium"]) Unknown Dose PO DAILY (["vit B"]) Unknown Dose PO DAILY Aspirin (Aspirin) 81 Mg Tablet 81 MG PO DAILY Cetirizine HCl (Zyrtec) 10 Mg Capsule 10 MG PO HS Dabigatran Etexilate Mesylate (Pradaxa) 150 Mg Capsule 150 MG PO BID Diltiazem ER (Cardizem CD) 120 Mg Cap.er.24h 120 MG PO BID Losartan Potassium (Losartan Potassium) 50 Mg Tablet 50 MG PO DAILY Metoprolol Tartrate (Metoprolol Tartrate) 50 Mg Tablet 50 MG PO BID Pravastatin (Pravastatin) 20 Mg Tablet 20 MG PO HS Scheduled PRN Alprazolam (Alprazolam) 0.25 Mg Tablet 0.25 MG PO BID PRN PRN For Anxiety General Time Seen by MD: 14:00 Chief Complaint Other (Hypertension) Hx Obtained From: Patient Arrived By: Walk-in Sudden in Onset?: No Onset Occurred: Yesterday Symptom Duration: Since onset Severity: Current: No pain currently Severity: Maximum: No pain Recent Healthcare: Recent hospitalization, Recent testing, Previous diagnosis Similar Sx Previous: Yes Past Medical History Past Medical History Paroxysmal atrial fibrillation - on Eliquis Hypertension Probable COPD Hx pneumonia Hx UTI Depression Anxiety Past Surgical History Cataract Smoking History Never Smoker Ambulatory Status Independent Review of Systems Full Review of Systems Constitutional: Denies: Chills, Fever Eyes: Denies: Blurred bilateral Respiratory: Denies: Shortness of breath Cardiovascular: Denies: Chest pain GI: Denies: Abdominal pain, Bloody/tarry stool, Diarrhea, Nausea, Vomiting Female: Denies: Hematuria Musculoskeletal: Denies: Back pain Hematologic: Denies Bleeding Skin: Denies Rash Neurologic: Denies: Change LOC, Confusion, Focal weakness, Headache, Numbness, Slurred speech, Unable to speak, Vision change Complete sys rev & neg: except as marked. Physical Exam Nursing note and vitals reviewed. Constitutional: Well-developed, well-nourished. Not diaphoretic. NAD. Well appearing. Head: Normocephalic and atraumatic. Mouth/Throat: Oropharynx is clear and moist. No oropharyngeal exudate. Eyes: EOM are normal. Pupils are equal, round, and reactive to light. Neck: Supple, no tracheal deviation. Cardiovascular: Normal rate, regular rhythm. Equal and intact distal pulses throughout. Pulmonary/Chest: Effort normal and breath sounds normal. No respiratory distress. Abdominal: Soft. No distension. There is no tenderness, rebound, or guarding. Musculoskeletal: Range of motion grossly intact, moving all extremities. No edema or tenderness appreciated. Neurological: AOx3. Grossly nonfocal exam. Strength and sensation intact and equal to bilateral upper and lower extremities. Normal finger to nose testing. Skin: Warm and dry, no rashes or pallor appreciated. Psychiatric: Appropriate mood and affect. Behavior appears normal. Vital Signs Vital Signs Date Time Temp Pulse Resp B/P Pulse Ox O2 Delivery O2 Flow Rate FiO2 11/26/16 11:46 58 20 143/48 100 Room Air 11/26/16 10:36 62 20 153/45 99 Room Air 11/26/16 10:12 36.5 69 16 174/80 99 Room Air Initial VS: Reviewed Interpretation & Diagnostics Lab Results Interpretation Result Diagram: 11/26/16 1045 11/26/16 1045 Test 11/26/16 10:30 11/26/16 10:45 Hold Urine Received (Received) White Blood Count 6.8th/mm3 (3.8-10.1) Red Blood Count 4.07mil/mm3 (3.90-5.20) Hemoglobin 12.8g/dL (12.0-15.6) Hematocrit 38.8% (35.0-46.0) Mean Corpuscular Volume 95.3fL (81-100) Mean Corpuscular Hemoglobin 31.4pg (27.0-35.0) Mean Corpuscular Hemoglobin Concent 33.0% (32.0-37.0) Red Cell Distribution Width 12.2% (12.3-15.4) Platelet Count 250bil/L (150-400) Neutrophils (%) (Auto) 65.4% (40-74) Lymphocytes (%) (Auto) 18.6% (14-46) Monocytes (%) (Auto) 13.8% (4-12) Eosinophils (%) (Auto) 1.8% (0-5) Basophils (%) (Auto) 0.3% (0-3) Sodium Level 135mEq/L (134-144) Potassium Level 4.3mEq/L (3.5-5.2) Chloride Level 98mEq/L (97-108) Carbon Dioxide Level 22mmol/L (18-29) Blood Urea Nitrogen 18mg/dL (8-27) Creatinine 0.72mg/dL (0.57-1.00) Estimat Glomerular Filtration Rate 113mL/min (>59) Glucose Level 118mg/dL (60-99) Calcium Level 9.1mg/dL (8.5-10.1) Magnesium Level 2.1mg/dL (1.6-2.6) Total Bilirubin 0.4mg/dL (0.0-1.2) Aspartate Amino Transf (AST/SGOT) 18U/L (0-50) Alanine Aminotransferase (ALT/SGPT) 17U/L (0-32) Alkaline Phosphatase 81U/L (25-165) Troponin T 0.010ug/L (0.0-0.011) Pro-B-Type Natriuretic Peptide 386.8pg/mL (0-738) Total Protein 7.2g/dL (6.4-8.4) Albumin 4.2g/dL (3.4-5.0) Hold [place] Top Tube Received (Received) ECG Interpretation ECG Interpretation: Sinus rhythm rate 61 Time: 11:34 Interpreted by: ED physician Normal ECG Interpretation: No acute ischemic changes Re-Eval/Medical Decision Med Decision/Clinical Course Summary, 76 old female with a history of atrial fibrillation on Eloquis sentence the ED for evaluation of hypertension. Her systolic was approximately 170s at home, in the 170s here upon arrival, subsequently noted to be in the 140s here without intervention. She has no symptoms right now whatsoever, including no chest pain, vision changes, strokelike symptoms, or any other complaints of noted this time. Normal exam. EKG demonstrates sinus rhythm with no acute ischemic changes. Laboratory studies grossly within normal limits , including CBC, CMP, troponin, and BNP. No evidence of acute kidney injury. Given the above, plan discharge home with careful return precautions, PCP follow -up tomorrow. Patient agreeable to the plan as stated, no further questions. Time of Eval: 14:03 Re-Evaluation/Progress Note: Pt rechecked. Informed pt of plan for discharge. Pt understands and agrees with plan for discharge. F/U instructions and RTER warnings given. All questions addressed. Counseled Regarding: Diagnosis, Lab results, Need for follow-up, When/why to return to ED Discharge & Departure Primary Impression: Asymptomatic hypertension Disposition: Home Discharge Condition All VS Reviewed: Yes Condition: Improved Patient Instructions: Hypertension (ED) Additional Instructions: Thank you for allowing us to be a part of your care in the ED today. Your emergency department results, including EKG and labs, are reassuring. Please schedule a follow up appointment with your primary care physician tomorrow for a recheck. Please discuss blood pressure during that visit. Please return to the emergency department for any new or worsening symptoms including systolic blood pressure persistently above 220, any nausea, vomiting, abdominal pain, shortness of breath, chest pain, one sided weakness/numbness, headache, vision or speech changes, dizziness, inability to urinate, fevers, or chills, or if there's anything else of concern to you. Referrals: Vandana Vásquez (PCP) Scribe Attestation Portions of this note were transcribed by Contreras Atkinson. I, Dr. Kamara, personally performed the history, physical exam and medical decision-making; I reviewed and confirmed the accuracy of the information in the transcribed note. copies to: Vandana Vásquez William B MD Nov 26, 2016 11:06 CONTRERAS ATKINSON Nov 26, 2016 11:34
[2016-11-26 11:11] LABS: BASOPHILS % (AUTO) 0.3 % (0-3); EOSINOPHILS % (AUTO) 1.8 % (0-5); MONOCYTES % (AUTO) 13.8 % (4-12); Mean Corpuscular Hemoglobin 31.4 pg (27.0-35.0); Mean Corpuscular Volume 95.3 fL (81-100); NEUTROPHILS % (AUTO) 65.4 % (40-74); Platelet Count 250 bil/L (150-400)
[2016-11-26 11:22] LABS: TROPONIN T 0.01 ug/L (0.0-0.011)
[2016-11-26 11:33] LABS: Magnesium 2.1 mg/dL (1.6-2.6)
[2016-11-26 11:46] VITALS: BP 143/48; PULSE 58; RESP 20; O2SAT 100
[2016-11-26 14:31] VITALS: BP 158/49; PULSE 60; RESP 20; O2SAT 100
== END 2016-11-26 14:31 | disposition home or self-care (01) ==
LOC: SED 10:10
DX: I10 Essential (primary) hypertension (principal); Z79.01 Long term (current) use of anticoagulants; Z87.440 Personal history of urinary (tract) infections; Z79.82 Long term (current) use of aspirin; Z88.2 Allergy status to sulfonamides

== ENCOUNTER 2016-12-01 16:28 | Inpatient (IN) | payer MEDICARE ==
[~2016-12-01] VITALS: Ht 165.1 cm; Wt 94.8 kg
[2016-12-01 16:32] VITALS: BP 177/82; PULSE 97; RESP 28; O2SAT 97
--- NOTE | 2016-12-01 17:18 | ED.REPORT ---
HPI-Fever Date of Service Dec 01, 2016 ED Provider: History of Present Illness: chilled and shakey, starting today. Sam is primary care at [facility]. denies pain cough dsyuria. Reports was fine yesterday. Nursing Notes Stated Complaint: FATIGUE AND THIRST Chief Complaint: General Complaint Nursing Notes Reviewed: Yes Allergies: Coded Allergies: Sulfa (Sulfonamide Antibiotics) (Verified Allergy, Unknown, 11/15/16) Scheduled Apixaban (Eliquis) 5 Mg Tablet 5 MG PO BID Aspirin (Aspirin) 81 Mg Tablet 81 MG PO DAILY Cetirizine HCl (Zyrtec) 10 Mg Capsule 10 MG PO QPM Diltiazem ER (Cardizem CD) 120 Mg Cap.er.24h 120 MG PO BID Losartan Potassium (Losartan Potassium) 50 Mg Tablet 50 MG PO DAILY Metoprolol Tartrate (Metoprolol Tartrate) 50 Mg Tablet 50 MG PO BID Multivitamin (Multivitamins) 1 Each Capsule 1 EACH PO DAILY Pravastatin (Pravastatin) 20 Mg Tablet 20 MG PO HS Scheduled PRN Alprazolam (Alprazolam) 0.25 Mg Tablet 0.25 MG PO BID PRN PRN For Anxiety General Time Seen by MD: 17:18 Chief Complaint Fever currently Hx Obtained From: Patient Onset Occurred: 9 - 12 hours ago Symptom Duration: Since onset Past Medical History Past Medical History Paroxysmal atrial fibrillation - on Eliquis Hypertension Probable COPD Hx pneumonia Hx UTI Depression Anxiety Past Surgical History Cataract Reports: Hysterectomy Smoking History Never Smoker Social History Alcohol Use: Denies alcohol use Drug Use: Denies drug use Occupation lives with daughter 12/01/2016 Ambulatory Status Independent Review of Systems Basic Review of Systems Musculoskeletal: No extremity swelling, No extremity pain, Full range of motion , Joints NL Endocrine: No cold intolerance, No heat intolerance, No weight gain, No weight loss Psychiatric: Normal thought content Physical Exam Initial Vital Signs Vital Signs (First) Date Time Temp Pulse Resp B/P Pulse Ox O2 Delivery O2 Flow Rate FiO2 12/01/16 16:32 39.5 97 28 177/82 97 Room Air Initial VS: Reviewed, Vital signs normal Head / Eyes: Atraumatic, Normocephalic, PERRL ENT: Mucous membranes moist, Conjunctiva normal, No scleral icterus Abdomen / GI: Soft, Non-tender, No guarding, No rebound, No distention Back: No CVA tenderness Lymphatic: No lymphadenopathy Extremities: Vascular intact, Neuro intact, No swelling, No tenderness Psychiatric: Mood/affect normal, Behavior normal, Normal thought content General/Constitutional: Awake, Alert, No acute distress, Well appearing, Well developed, Well hydrated, Well nourished, Cooperative Neck: Atraumatic, Supple, No meningismus, Full range of motion, No adenopathy, No swelling, Non-tender, No midline vertebral tend Respiratory / Chest: Atraumatic, Breath sounds NL, Breath sounds = bilat, No respiratory distress, No rales, No rhonchi Cardiovascular: Heart rate NL, Regular rhythm, Heart sounds NL, No gallop Skin: Atraumatic, Color NL, No rash Neurologic: Oriented X3, Speech NL, No motor deficits, No sensory deficits, CN II - XII intact Interpretation & Diagnostics Lab Results Interpretation Result Diagram: 12/01/16 1755 12/01/16 1755 Test 12/01/16 17:55 White Blood Count 21.6th/mm3 (3.8-10.1) Red Blood Count 4.34mil/mm3 (3.90-5.20) Hemoglobin 13.9g/dL (12.0-15.6) Hematocrit 40.5% (35.0-46.0) Mean Corpuscular Volume 93.3fL (81-100) Mean Corpuscular Hemoglobin 32.0pg (27.0-35.0) Mean Corpuscular Hemoglobin Concent 34.3% (32.0-37.0) Red Cell Distribution Width 12.4% (12.3-15.4) Platelet Count 267bil/L (150-400) Neutrophils (%) (Auto) 87.9% (40-74) Lymphocytes (%) (Auto) 3.3% (14-46) Monocytes (%) (Auto) 8.3% (4-12) Eosinophils (%) (Auto) 0% (0-5) Basophils (%) (Auto) 0% (0-3) Sodium Level 129mEq/L (134-144) Potassium Level 4.3mEq/L (3.5-5.2) Chloride Level 90mEq/L (97-108) Carbon Dioxide Level 22mmol/L (18-29) Blood Urea Nitrogen 20mg/dL (8-27) Creatinine 0.65mg/dL (0.57-1.00) Estimat Glomerular Filtration Rate 127mL/min (>59) Glucose Level 116mg/dL (60-99) Lactic Acid Level 1.6mmol/L (0.4-2.0) Calcium Level 9.9mg/dL (8.5-10.1) Magnesium Level 1.8mg/dL (1.6-2.6) Total Bilirubin 0.5mg/dL (0.0-1.2) Aspartate Amino Transf (AST/SGOT) 27U/L (0-50) Alanine Aminotransferase (ALT/SGPT) 21U/L (0-32) Alkaline Phosphatase 91U/L (25-165) Troponin T < 0.010ug/L (0.0-0.011) Total Protein 8.4g/dL (6.4-8.4) Albumin 4.7g/dL (3.4-5.0) Procalcitonin 0.21ng/mL (0.00-0.08) X-Ray Chest Interpretation Chest Xray Interpretation: ROCEDURE: X-RAY CHEST ONE VIEW, PORTABLE ([id number]) INDICATIONS: r/o sepsis TECHNIQUE: One view of the chest was acquired. COMPARISON: [facility], , XR CHEST 1VW (PORTABLE), 11/15/2016, 15:58. FINDINGS: Surgical changes and devices: None. Lungs and pleura: No pleural effusions or pneumothorax. Lungs are clear. Mediastinum: Mediastinal contours appear normal. Heart size is normal. Bones and chest wall: No suspicious bony lesions. Overlying soft tissues appear unremarkable. IMPRESSION: Acute disease is seen in the semi-upright portable chest. Dictated by: Husam Rosenthal M.D. on 12/01/2016 at 18:06 Approved by: Husam Rosenthal M.D. on 12/01/2016 at 18:06 ADDENDUM This report includes an Addendum and supersedes previous reports for this exam. PROCEDURE: X-RAY CHEST ONE VIEW, PORTABLE ([id number]) INDICATIONS: r/o sepsis TECHNIQUE: One view of the chest was acquired. COMPARISON: [facility], CR, XR CHEST 1VW (PORTABLE), 11/15/2016, 15:58. FINDINGS: Surgical changes and devices: None. Lungs and pleura: No pleural effusions or pneumothorax. Lungs are clear. Mediastinum: Mediastinal contours appear normal. Heart size is normal. Bones and chest wall: No suspicious bony lesions. Overlying soft tissues appear unremarkable. IMPRESSION: Acute disease is seen in the semi-upright portable chest. Dictated by: Husam Rosenthal M.D. on 12/01/2016 at 18:06 Approved by: Husam Rosenthal M.D. on 12/01/2016 at 18:06 ADDENDUM: The impression should read: Acute disease is not seen in this semiupright portable chest. Dictated by: Husam Rosenthal M.D. on 12/01/2016 at 18:57 Approved by: Husam Rosenthal M.D. on 12/01/2016 at 18:57 Report status: Addendum REPORT#: [id number] Re-Eval/Medical Decision Med Decision/Clinical Course 76 year old presents for evualation of fever which started this am. Denies any pain. chest x-ray is negative as is urine. Patient was recently hospitalized for A fib on 11/17/2016. No sign of CA or pneumonia. Patient with increase in heart rate after rate control meds wear off. Patient given IV metroprolol, heart rate decreases.to [address] Bryant fernandez Discharge & Departure Impression: Primary Impression: Fever Encounter type: initial encounter Additional Impression: Atrial fibrillation with rapid ventricular response Disposition: ADMITTED TO HOSPITAL Referrals: Vandana Vásquez (PCP) EDSupervising Provider for APC: Tra Barber MD Attending Statement I discussed case with LOVE Lyman. I evaluated patient independently and agree with plan as above. In brief, 76-year-old female presenting with fever and leukocytosis 21,000 earlier today. Patient feels poorly. She has no symptoms to point to the cause of her fever. She has mild neck tenderness though no headache and negative Brudzinski's and Kernig's making meningitis unlikely. No abdominal tenderness. Her lungs are clear. Urine is negative for infection on dip. She will be admitted for fever, leukocytosis with broad-spectrum antibiotics. copies to: Vandana Vásquez Sue ARNP Dec 01, 2016 17:18 Tra Barber MD Dec 01, 2016 19:27 Urine White Blood Cell Casts None seen (NONE SEEN) Urine Mucus None seen (None Seen) Urine Trichomonas None seen (NONE SEEN) Urine Yeast None (NONE SEEN) Urinalysis Comment None Urine Culture Reflexed Indicated X-Ray Chest Interpretation Chest Xray Interpretation: ROCEDURE: X-RAY CHEST ONE VIEW, PORTABLE ([id number]) INDICATIONS: r/o sepsis TECHNIQUE: One view of the chest was acquired. COMPARISON: [facility], CR, XR CHEST 1VW (PORTABLE), 11/15/2016, 15:58. FINDINGS: Surgical changes and devices: None. Lungs and pleura: No pleural effusions or pneumothorax. Lungs are clear. Mediastinum: Mediastinal contours appear normal. Heart size is normal. Bones and chest wall: No suspicious bony lesions. Overlying soft tissues appear unremarkable. IMPRESSION: Acute disease is seen in the semi-upright portable chest. Dictated by: Husam Rosenthal M.D. on 12/01/2016 at 18:06 Approved by: Husam Rosenthal M.D. on 12/01/2016 at 18:06 ADDENDUM This report includes an Addendum and supersedes previous reports for this exam. PROCEDURE: X-RAY CHEST ONE VIEW, PORTABLE ([id number]) INDICATIONS: r/o sepsis TECHNIQUE: One view of the chest was acquired. COMPARISON: [facility], CR, XR CHEST 1VW (PORTABLE), 11/15/2016, 15:58. FINDINGS: Surgical changes and devices: None. Lungs and pleura: No pleural effusions or pneumothorax. Lungs are clear. Mediastinum: Mediastinal contours appear normal. Heart size is normal. Bones and chest wall: No suspicious bony lesions. Overlying soft tissues appear unremarkable. IMPRESSION: Acute disease is seen in the semi-upright portable chest. Dictated by: Husam Rosenthal M.D. on 12/01/2016 at 18:06 Approved by: Husam Rosenthal M.D. on 12/01/2016 at 18:06 ADDENDUM: The impression should read: Acute disease is not seen in this semiupright portable chest. Dictated by: Husam Rosenthal M.D. on 12/01/2016 at 18:57 Approved by: Husam Rosenthal M.D. on 12/01/2016 at 18:57 Report status: Addendum REPORT#: [id number] Re-Eval/Medical Decision Med Decision/Clinical Course 76 year old presents for evualation of fever which started this am. Denies any pain. chest x-ray is negative as is urine. Patient was recently hospitalized for A fib on 11/17/2016. No sign of CA or pneumonia. Patient with increase in heart rate after rate control meds wear off. Patient given IV metroprolol, heart rate decreases.to 108 [address] Bryant fernandez Discharge & Departure Impression: Primary Impression: Fever Encounter type: initial encounter Additional Impression: Atrial fibrillation with rapid ventricular response Disposition: ADMITTED TO HOSPITAL Referrals: Vandana Vásquez (PCP) EDSupervising Provider for APC: Tra Barber MD Attending Statement I discussed case with LOVE Lyman. I evaluated patient independently and agree with plan as above. In brief, 76-year-old female presenting with fever and leukocytosis 21,000 earlier today. Patient feels poorly. She has no symptoms to point to the cause of her fever. She has mild neck tenderness though no headache and negative Brudzinski's and Kernig's making meningitis unlikely. No abdominal tenderness. Her lungs are clear. Urine is negative for infection on dip. She will be admitted for fever, leukocytosis with broad-spectrum antibiotics. copies to: Vandana Vásquez Sue ARNP Dec 01, 2016 17:18 Tra Barber MD Dec 01, 2016 19:27
[2016-12-01] MEDS ORDERED: 0.9% Sodium Chloride 1,000 ML IV ONE (17:25)
[2016-12-01 18:08] LABS: BASOPHILS % (AUTO) 0 % (0-3); EOSINOPHILS % (AUTO) 0 % (0-5); MONOCYTES % (AUTO) 8.3 % (4-12); Mean Corpuscular Volume 93.3 fL (81-100); NEUTROPHILS % (AUTO) 87.9 % (40-74); Platelet Count 267 bil/L (150-400)
--- NOTE | 2016-12-01 18:08 | DRSVH ---
PROCEDURE: X-RAY CHEST ONE VIEW, PORTABLE ([id number]) INDICATIONS: r/o sepsis TECHNIQUE: One view of the chest was acquired. COMPARISON: [facility], CR, XR CHEST 1VW (PORTABLE), 11/15/2016, 15:58. FINDINGS: Surgical changes and devices: None. Lungs and pleura: No pleural effusions or pneumothorax. Lungs are clear. Mediastinum: Mediastinal contours appear normal. Heart size is normal. Bones and chest wall: No suspicious bony lesions. Overlying soft tissues appear unremarkable. IMPRESSION: Acute disease is seen in the semi-upright portable chest. Dictated by: Husam Rosenthal M.D. on 12/01/2016 at 18:06 Approved by: Husam Rosenthal M.D. on 12/01/2016 at 18:06
[2016-12-01 18:29] LABS: TROPONIN T < 0.010 ug/L (0.0-0.011)
[2016-12-01 18:36] LABS: Magnesium 1.8 mg/dL (1.6-2.6)
[2016-12-01] MEDS ORDERED: Piperacillin-Tazo 3.375 Gm Inj 3.375 GM in Dextrose 5% Minibag Plus 50 ML IV ONE (18:50)
[2016-12-01 19:29] LABS: APPEARANCE,URINE HAZY (CLEAR,HAZY); COLOR,URINE YELLOW (YELLOW); OCCULT BLOOD,URINE MODERATE (NEGATIVE); PH,URINE 5.5 (5.0-8.0); UROBILINOGEN,URINE NORMAL (NORMAL)
[2016-12-01] MEDS ORDERED: Ondansetron 2 mg/mL 2 mL Inj IVPUSH PRN (19:30)
[2016-12-01] MEDS ORDERED: Polyethylene Glycol (PEG) 17 Gm Powder PO PRN (19:30)
[2016-12-01] MEDS ORDERED: Alum-Mag Hydrox-Simeth 30 mL Suspension PO PRN (19:30)
[2016-12-01] MEDS ORDERED: MULT1CAP33 PO (19:35)
[2016-12-01] MEDS ORDERED: APIX5TAB PO (19:35)
--- NOTE | 2016-12-01 20:14 | PCM.HPMED ---
Subjective Date of Service Dec 01, 2016 Primary Provider: Admitting Physician: You Davis MD Primary Care Physician: Vandana Vásquez Attending Physician: You Davis MD Admit Status: From the Emergency Department, Remote Telemetry Chief Complaint: fatigue, nausea, fever History of Present Illness: Ms. Mancia is a pleasant 76 -year-old woman with a history of hypertension, atrial fibrillation on Eliquis, and anxiety, that presented to the emergency department with a one-day history of increased fatigue, fever, nausea, and shaking chills. Initial evaluation revealed a temperature of 39.5C, WBC 21.6, and respiratory rate 28. She was admitted for evaluation and treatment of SIRS , without identified source of infection at time of admission. - Hospital day 1 Ms. Mancia states that she has felt well since her recent discharge 2016, with hospitalization for atrial fibrillation with rapid ventricular rate. She notes today she woke up this morning, she developed shaking chills, fever , and general sense of uneasiness and feeling unwell. She denies any associated chest pain, palpitations, shortness of breath, dysuria, diarrhea, constipation, headache, acute vision changes, cough, or development of edema. She denies any recent sick contacts. Family present state that he noticed the patient this morning appearing extremely fatigued, with the appearance of falling asleep while sitting. Family and patient state that this presentation is new and unusual for her. She denies any recent medication changes since her recent discharge other than the change of anticoagulation to Eliquis. In the ED, T 39.5, P 97, RR 28, blood pressure 177/82, 97% on room air; initial lab results included WBC 21.6, with 87.9% neutrophils, hemoglobin 13.9, hematocrit 40.5, platelets 267; sodium 129, potassium 4.3, glucose 116, creatinine 0.65, lactic acid 1.6, LFTs within range, troponin negative; urinary studies obtained revealed a specimen with many epithelial cell contaminants, in addition to moderate occult blood, negative nitrite, trace leukocyte esterase, no white blood cells seen, and no bacteria noted. Urine cultures and blood cultures were obtained. CXR did not reveal any acute pathologies; Initial therapies included acetaminophen, Toradol, 1 L normal saline, and Zosyn. She is transported to the medical floor in stable condition. Review of Systems: Complete review of systems obtained, pertinent positives and negatives as noted in history of present illness Allergies Coded Allergies: Sulfa (Sulfonamide Antibiotics) (Verified Allergy, Unknown, 11/15/16) Home Medications Aspirin (Aspirin) 81 Mg Tablet 81 MG PO DAILY Cetirizine HCl (Zyrtec) 10 Mg Capsule 10 MG PO HS Dabigatran Etexilate Mesylate (Pradaxa) 150 Mg Capsule 150 MG PO BID Diltiazem ER (Cardizem CD) 120 Mg Cap.er.24h 120 MG PO BID Losartan Potassium (Losartan Potassium) 50 Mg Tablet 50 MG PO DAILY Metoprolol Tartrate (Metoprolol Tartrate) 50 Mg Tablet 50 MG PO BID Pravastatin (Pravastatin) 20 Mg Tablet 20 MG PO HS Scheduled PRN Alprazolam (Alprazolam) 0.25 Mg Tablet 0.25 MG PO BID PRN PRN For Anxiety Please note, patient states that her pradaxa was changed to eliquis; and she states that her as needed alprazolam has been recommended to decrease to twice weekly Medication reconciliation was not yet completed at time of admission H Atrial fibrillation on long-term anticoagulation with history of RVR Hypertension Probable COPD Hx pneumonia Hx UTI Depression Anxiety Surgical History Cataracts Family History Patient denies any recent sick contacts Reported family history of atrial fibrillation Social History Hx Alcohol Use: No Hx Substance Use: No Hx Tobacco Use: No Smoking Status: Never Smoker Living Arrangement: with Family (local, with daughters and son) Exam Vital Signs Vital Sign - Last Date Time Temp Pulse Resp B/P Pulse Ox O2 Delivery O2 Flow Rate FiO2 12/01/16 19:27 39.0 12/01/16 16:32 97 28 177/82 97 Room Air Exam General: Alert and oriented 3; pleasant woman resting on bedside commode in no acute distress HEENT: Atraumatic, normocephalic, sclera anicteric, membranes moist; hirsutism noted Neck: Full range of motion without pain; mild tenderness to palpation over right sternocleidomastoid with notable hypertonicity Cardiac: Irregular rate and rhythm at time of examination without any appreciable murmurs Respiratory: Equal and adequate airflow all youssef without any wheeze or rhonchi ; no use of accessory muscles Chest: Atraumatic without any reproducible pain with palpation Abdomen: Soft, nontender, nondistended Extremities: No edema appreciated Skin: Warm and dry MSK: 5/5 strength 4/4 extremities at major joints of the shoulder, hip; able to transition from bed to bedside commode with minimal assistance Neuro: Cranial nerves II-XII grossly intact, speech without slur, facial expressions equal and symmetric Psych: Appropriate mood, affect, and responses to questions; good insight and judgment Lab and Diagnostics Result Diagram: 12/01/16175412/01/161754 Assessment & Plan Ms. Mancia is a pleasant 76 -year-old woman with a history of hypertension, atrial fibrillation on Eliquis, and anxiety, that presented to the emergency department with a one-day history of increased fatigue, fever, nausea, and shaking chills. Initial evaluation revealed a temperature of 39.5C, WBC 21.6, and respiratory rate 28. She was admitted for evaluation and treatment of SIRS , without identified source of infection at time of admission. - Hospital day 1 SIRS, acute, present on admission, under evaluation - On admit: WBC 21.6, R28, T39.5; LA 1.6; no identifiable source at time of admission - Pt denies any URI, GI, sx at time of admit; only admitted to fever, fatigue , chills; negative Brudzinski - CXR: No acute disease; will repeat with 2vw in am - UA: many epithelial cell contaminants, in addition to moderate occult blood, negative nitrite, trace leukocyte esterase, no white blood cells seen, and no bacteria noted - Continue to investigate for source: repeat UA, pending urine culture, pending blood cultures, repeat CXR - With lack of GI sx, no additional advanced imaging at this time - With lack of URI sx, no additional PNA studies, such as legionella, strep pneu, sputum - Continue zosyn at this time; likely change/tailor as results yield Hyponatremia, acute, present on admission, under evaluation - On admit: Na 129; previous value 11/26/16 135 - Patient appeared euvolemic at time of admission, but due to likelihood of underlying infection, hydration was provided and continued at this time - No interventions at this time, continue to monitor - Pt tolerating po intake, encourage; likely DC IVF in am Atrial fibrillation with history of RVR on long-term anticoagulation, chronic, presumed stable - Resume home meds when reconciliation completed and when appropriate - Monitor on telemetry, as infection may exacerbate her atrial fibrillation Hypertension, chronic, presumed stable - Admit: Elevated at 177/82; likely secondary to stress of admission and underlying infection - No acute intervention is needed, continue to monitor - Resume home medications when reconciliation completed in when appropriate Anxiety, chronic, presumed stable - Patient reports home medication of alprazolam - Continue to provide as needed PRN fever, bowel, nausea, pain DVT: Eliquis Diet: general GI: H2B IVF: NS 100 Code: FULL CODE Patient is admitted under inpatient status with expected length of stay greater than 2 midnights due to severity of presenting symptoms, risk of adverse event, and complexity of treatment plan. Pain Evaluation: Adequate Pain Control GI Prophylaxis: H2 vincent VTE Prophylaxis: Other (elliquis) Resuscitation Status: DNR/DNI:Do Not Resuscitate/Intubate Attending Statement The patient was seen and examined together with Dr. Hassan on 12/01 and I agree with the history, exam and plan as outlined in the note above. Susi Hassan DO Dec 01, 2016 20:14 You Davis MD Dec 02, 2016 01:16
[2016-12-01] MEDS ORDERED: MeTOProlol 1 mg/mL 5 mL Inj IVPUSH STA (20:24)
[2016-12-01] MEDS: MeTOProlol 1 mg/mL 5 mL Inj IVPUSH PRN ×2 (21:00→21:15)
[2016-12-01] MEDS ORDERED: MeTOProlol 1 mg/mL 5 mL Inj IVPUSH PRN (21:05)
[2016-12-01 21:23] VITALS: BP 126/47; PULSE 110; RESP 22; O2SAT 95
[2016-12-01 21:42] VITALS: BP 133/68; PULSE 101; RESP 18; O2SAT 96
[2016-12-01] MEDS: 0.9% Sodium Chloride 1,000 ML IV SCH (22:01)
--- NOTE | 2016-12-01 23:06 | NUR ---
ADMIT Pt arrived on unit #[id number] via stretcher from ED with all personal belongings. Able to transfer self to bed with SBA. VSS. Fever resolved. Alert and oriented. Denies pain or discomfort at this time. No complaints of n/v or SOB. Oriented to room, call light, hospital and fall policy. Allergy sticker placed on armband. Home medication list completed by admit RN. Bed locked, low position. SBA and nonslip socks on for safety. Call light within reach, using appropriately. Frequent rounding in place. Pleasant and cooperative with care.
[2016-12-01 23:24] LABS: APPEARANCE,URINE CLEAR (CLEAR,HAZY); COLOR,URINE YELLOW (YELLOW); OCCULT BLOOD,URINE SMALL (NEGATIVE); PH,URINE 5.5 (5.0-8.0); UROBILINOGEN,URINE NORMAL (NORMAL)
[2016-12-02] VITALS (9 sets, daily range): BP systolic 111–184; BP diastolic 62–79; PULSE 69–112; RESP 18–20; O2SAT 96–98
[2016-12-02] MEDS: Piperacillin-Tazo 3.375 Gm Inj 3.375 GM in Dextrose 5% Minibag Plus 50 ML IV SCH ×2 (00:50→08:45)
[2016-12-02 05:13] LABS: BASOPHILS % (AUTO) 0.1 % (0-3); EOSINOPHILS % (AUTO) 0 % (0-5); MONOCYTES % (AUTO) 8.5 % (4-12); Mean Corpuscular Hemoglobin 31.9 pg (27.0-35.0); Mean Corpuscular Volume 93.3 fL (81-100); NEUTROPHILS % (AUTO) 83.2 % (40-74); Platelet Count 225 bil/L (150-400)
[2016-12-02] MEDS: 0.9% Sodium Chloride 1,000 ML IV SCH ×3 (07:51→22:33)
[2016-12-02] MEDS ORDERED: Non-Formulary Medication (Multivitamin (Multivitamins) 1 EACH) PO SCH (08:30)
[2016-12-02] MEDS: Diltiazem CD 120 mg ER24 Capsule PO SCH ×2 (08:47→21:01)
--- NOTE | 2016-12-02 11:50 | NUR ---
Case Management: IMM given and explained to pt. Diane MARTINIRN
--- NOTE | 2016-12-02 12:04 | NUR ---
Social Work: Initial Assessment Data: See initial assessment. Patient is a 76 year old female who was admitted on 12/01/16 for fever & WBC 21 per H&P. Patient's insurance is [facility] and PCP is LOVE Barry. EMR reviewed. KRISSY met with patient and daughter to discuss discharge planning. SW role explained. Patient is alert & oriented x3. Patient resides at home with her daughter Breanne in a 1 level home with 5 steps at the entrance. Patient remains I with ADLs. Patient states that she does have a car but she doesn't like to drive. Patient states that if she does drive, she does it early in the day. Patient denies having any home health services in the past or present. Patient denies any SNF admissions in the past. Patient denies having any intermediate care insurance or VA benefits. Patient denies having a DPOA or AD. SW offered resources but patient declined. Upon discharge, patient states that transportation will be provided by one of her children. SW provided a discharge planning checklist booklet to patient and encouraged her to call with any questions. Phone number provided. SW will continue to follow. Assessment: Patient was discussed in morning rounds. Patient will discharge home when medically stable. No needs are anticipated at this time. Plan: Patient will discharge home likely with no needs. Transportation will be provided by family. SW will continue to follow. DELMAR Sen Addendum: 12/02/16 at 1217 by JEY DHALIWAL SS Amended: Links added.
--- NOTE | 2016-12-02 12:50 | DRSVH ---
PROCEDURE: X-RAY CHEST, TWO VIEWS ([id number]) INDICATIONS: fever TECHNIQUE: 2 views of the chest were acquired. COMPARISON: [facility], CR, XR CHEST 1VW (PORTABLE), 11/15/2016, 15:58. [facility], CR, XR CHEST 1VW (PORTABLE), 12/01/2016, 17:24. FINDINGS: Surgical changes and devices: None. Lungs and pleura: No pleural effusions or pneumothorax. Lungs are clear. Mediastinum: Mediastinal contours are normal. Heart size is normal. Bones and chest wall: Mild compression deformity of T11. Soft tissues appear unremarkable. IMPRESSION: No acute cardiopulmonary disease. Dictated by: Darrin Still M.D. on 12/02/2016 at 12:46 Approved by: Darrin Still M.D. on 12/02/2016 at 12:48
--- NOTE | 2016-12-02 15:31 | PCM.PNMED ---
Subjective Date of Service Dec 02, 2016 Subjective Reports some neck pain and frontal sinus pain (mostly on the left). Denies any other new issues/complaints Exam Vital Signs Vital Sign - Last Date Time Temp Pulse Resp B/P Pulse Ox O2 Delivery O2 Flow Rate FiO2 12/02/16 13:28 37.2 12/02/16 12:51 69 18 133/74 97 Room Air Intake and Output 12/01/16 12/01/16 12/02/16 Cumulative From/Thru 15:00 23:00 07:00 12/01/16 16:32 - 12/02/16 06:10 Intake Total 1000 ml 773 ml 1773 ml Output Total 1425 ml 1425 ml Balance 1000 ml -652 ml 348 ml Intake Oral 773 ml 773 ml IV Total 1000 ml 1000 ml Output Urine Total 1425 ml 1425 ml General: Alert, Cooperative, No Acute Distress Head: Normal Eyes: PERRLA, EOMI, Scleral Anicteric Nose: Mucous Membr Moist/[place] Mouth: Mucous Membr Moist/[place] Neck: Supple Chest & Lungs: Chest Wall Normal, Clear to auscultation & percussion Cardiovascular: Regular Rate/Rhythm Abdomen: Non-tender, Non-distended, Normoactive bowel tones, Soft Extremities: No cyanosis/clubbing/edma bilat Neurological: Grossly Neurologically Intact, Cranial Nerves 2-12 Intact, Normal Speech IVs and Medications Medications Reviewed: Medications were reviewed in detail Lab and Diagnostics Result Diagram: 12/02/16 0505 12/02/16 0505 Assessment & Plan 76 -year-old woman with a history of hypertension, atrial fibrillation on Eliquis, and anxiety, that presented to the emergency department with a one-day history of increased fatigue, fever, nausea, and shaking chills. # Acute fever and leukocytosis, present on admission. Unknown source as of yet. - Check sinus and neck CT given report of sinus and neck pain - Followup pending cultures. - Not sure what they were trying to treat with Zosyn on admission so will stop Abx for now # Acute SIRS, present on admission, under evaluation - On admit: WBC 21.6, R28, T39.5; LA 1.6; no identifiable source of infection so far - CXR: No acute disease despite repeat with 2vw on 12/02 - UA negative - No diarrhea or other GI symptoms - Sinus and neck imaging as noted above - Followup pending blood cultures - No further Abx for now until source of infection identified. # Acute Hyponatremia, present on admission, under evaluation - Improving with IVF - Continue IVF and followup # Chronic Atrial fibrillation with history of RVR on long-term anticoagulation. - Rate controlled and stable. - Continue with home meds including Eliquis # Chronic hypertension. Stable. - Continue home medications # Anxiety, chronic, presumed stable - Continue home meds Dispo: 1-2 days GI Prophylaxis: H2 vincent VTE Prophylaxis: Other (elliquis) VTE Mechanical Devices: Venous Foot Pump Resuscitation Status: DNR/DNI:Do Not Resuscitate/Intubate Sukhdev Damian Dec 02, 2016 15:31 Code: FULL CODE Patient is admitted under inpatient status with expected length of stay greater than 2 midnights due to severity of presenting symptoms, risk of adverse event, and complexity of treatment plan. GI Prophylaxis: H2 vincent VTE Prophylaxis: Other (elliquis) VTE Mechanical Devices: Venous Foot Pump Resuscitation Status: DNR/DNI:Do Not Resuscitate/Intubate Sukhdev Damian Dec 02, 2016 15:31
--- NOTE | 2016-12-02 18:48 | DRSVH ---
PROCEDURE: CT NECK SOFT TISSUES WITH CONTRAST ([id number]) INDICATIONS: left facial/sinus pain, fever, leukocytosis TECHNIQUE: After the administration of intravenous contrast, 3.0 mm axial sections acquired from the sella to th e aortic arch. Additional oblique axial 3.0 mm sections acquired through the pharynx. 3 mm thick co wilmer reformats were generated. For radiation dose reduction, the following was used: automated exp osure control. COMPARISON: [facility], CR, XR CHEST 2VW, 12/02/2016, 8:23. FINDINGS: Image quality: Excellent. Lymph nodes: Small cervical lymph nodes are present in the neck bilaterally, likely reactive. Vessels: Visualized vasculature appears patent. Neck spaces: The oropharynx, nasopharynx, and pharynx demonstrate no mucosal lesions. The vocal cor ds, false vocal cords, pyriform sinuses, epiglottis, vallecula, and tongue base all appear normal. E xtramucosal spaces appear unremarkable. Glands: The parotid and submandibular glands appear normal. Small enhancing nodules in parotid glan ds bilaterally are most likely intraparotid lymph nodes. Thyroid gland is normal. Miscellaneous: Visualized brain and orbits appear normal. Lung apices appear clear. Superficial so ft tissues appear normal. Bones: No suspicious bony lesions. Visualized sinuses and mastoids appear unremarkable. IMPRESSION: 1. Visualized sinuses are clear. No CT findings to explain fever and leukocytosis. 2. Bilateral small cervical lymph nodes are likely reactive. Dictated by: Darrin Still M.D. on 12/02/2016 at 18:45 Transcribed by: DAPHNEY on 12/02/2016 at 18:49 Approved by: Darrin Still M.D. on 12/02/2016 at 22:26
[2016-12-03] VITALS (9 sets, daily range): BP systolic 146–194; BP diastolic 65–86; PULSE 72–94; RESP 18–26; O2SAT 96–98
[2016-12-03] MEDS: ALPRAZolam 0.25 mg Tablet PO PRN (00:26)
--- NOTE | 2016-12-03 01:31 | NUR ---
C/o feeling bloated and "puffy" Concerned about receiving IV fluids, states she has had to take Lasix in the past. No LE edema, denies SOB. IV fluids NS at 75ml.hr for hyponatremia of 131. Morning labs to be reviewed and IVF 's to be adjusted accordingly. B/P up slightly overnight. Will continue to monitor.
--- NOTE | 2016-12-03 05:30 | NUR ---
elevated B/P 194/83 C/o sore throat and chills. Remains afebrile. Reports epigastric muscle spasms that started tonight. Denies nausea. Tele; sinus 89 no ectopy. Hospitalist notified and scheduled 0830 dose of Metoprolol 50mg's PO changed to give now. Medication given. Notified patients daughter, per her request, and she will be in this morning.
[2016-12-03 06:16] LABS: BASOPHILS % (AUTO) 0.2 % (0-3); EOSINOPHILS % (AUTO) 0.8 % (0-5); MONOCYTES % (AUTO) 11.6 % (4-12); Mean Corpuscular Hemoglobin 31.4 pg (27.0-35.0); Mean Corpuscular Volume 96.4 fL (81-100); NEUTROPHILS % (AUTO) 76.8 % (40-74); Platelet Count 233 bil/L (150-400)
[2016-12-03 06:28] LABS: Magnesium 2.2 mg/dL (1.6-2.6)
[2016-12-03 06:38] LABS: INR 0.93 ratio
[2016-12-03] MEDS: Diltiazem CD 120 mg ER24 Capsule PO SCH ×2 (08:11→20:30)
--- NOTE | 2016-12-03 12:24 | NUR ---
BP/Malaise Pt c/o of not feeling well, upper abd cramping, chills, BP 176/68 HR 87 RR26 O2 sats 96% T37.2. Pt expressed that may need to take the fluid off. Pt wt is up 1kg, aware of wt gain, paged for malaise and BP, pending.
--- NOTE | 2016-12-03 12:48 | NUR ---
Social Work- Readiness for D/C/Multidisciplinary Rounds Data: EMR reviewed. Pt is on day 2 of hospitalization. Pt discussed in multidisciplinary rounds, pt is not medically stable for d/c at this time. Anticipate d/c tomorrow. Pt may require ID consult. Pt is independent at baseline, no SW orders received at this time. Pt anticipated to d/c home with her family to transport via POV. No d/c needs identified at this time. SW will continue to follow for d/c needs Assessment: Pt who is independent at baseline. Plan: Pt to d/c home with family to transport via POV. No d/c needs identified at this time. SW will continue to follow for d/c needs DELMAR Garland
--- NOTE | 2016-12-03 17:01 | PCM.PNMED ---
Subjective Date of Service Dec 03, 2016 Subjective Reports some sweating and abdominal discomfort last night but feeling "fine" now. Denies any other new issues/complaints Exam Vital Signs Vital Sign - Last Date Time Temp Pulse Resp B/P Pulse Ox O2 Delivery O2 Flow Rate FiO2 12/03/16 12:14 37.2 87 26 176/78 96 Room Air Intake and Output 12/02/16 12/02/16 12/03/16 Cumulative From/Thru 15:00 23:00 07:00 12/01/16 16:32 - 12/03/16 06:06 Intake Total 1300 ml 1323 ml 4396 ml Output Total 1100 ml 2500 ml 5025 ml Balance 200 ml -1177 ml -629 ml Intake Oral 1300 ml 673 ml 2746 ml IV Total 650 ml 1650 ml Output Urine Total 1100 ml 2500 ml 5025 ml # Voids 1 1 2 # Bowel Movements 1 1 Exam General: Alert, Cooperative, No Acute Distress Head: Normal Eyes: Scleral Anicteric Nose: Mucous Membr Moist/[place] Mouth: Mucous Membr Moist/[place] Neck: Supple Chest & Lungs: Chest Wall Normal, Clear to auscultation bilat Cardiovascular: Regular Rate/Rhythm Abdomen: Non-tender, Non-distended, Normoactive bowel tones, Soft Extremities: No cyanosis/clubbing/edema bilat Neurological: Grossly Neurologically Intact, Normal Speech IVs and Medications Medications Reviewed: Medications were reviewed in detail Lab and Diagnostics Result Diagram: 12/03/1651912/03/16519 Assessment & Plan 76 -year-old woman with a history of hypertension, atrial fibrillation on Eliquis, and anxiety, that presented to the emergency department with a one-day history of increased fatigue, fever, nausea, and shaking chills. # Acute fever and leukocytosis, present on admission. Unknown source as of yet. - Sinus and neck CT negative despite report of sinus and neck pain - Followup pending cultures. - Not sure what they were trying to treat with Zosyn on admission so stopped Abx on 12/03 - Consider ID consult in AM if leukocytosis or fever persist # Acute SIRS, present on admission, under evaluation - On admit: WBC 21.6, R28, T39.5; LA 1.6; no identifiable source of infection so far - CXR: No acute disease despite repeat with 2vw on 8/26 - UA negative - No diarrhea - Sinus and neck imaging as noted above - Followup pending blood cultures - No further Abx for now until source of infection identified. # Acute Hyponatremia, present on admission, under evaluation - Resolved with IVF # Chronic Atrial fibrillation with history of RVR on long-term anticoagulation. - Rate controlled and stable. - Continue with home meds including Eliquis # Chronic hypertension. Poorly controlled. - Continue home medications - Check serum/24h urine metanephrine to rule out pheochromocytoma given presenting symptoms # Anxiety, chronic, presumed stable - Continue home meds Dispo: 1-2 days GI Prophylaxis: H2 vincent VTE Prophylaxis: Other (elliquis) VTE Mechanical Devices: Intermittant Pneumatic CD, Venous Foot Pump Resuscitation Status: DNR/DNI:Do Not Resuscitate/Intubate Sukhdev Damian Dec 03, 2016 17:01
[2016-12-04] VITALS (7 sets, daily range): BP systolic 134–154; BP diastolic 56–84; PULSE 72–120; RESP 18–20; O2SAT 95–100
[2016-12-04] MEDS: ALPRAZolam 0.25 mg Tablet PO PRN (00:15)
[2016-12-04 05:20] LABS: Mean Corpuscular Hemoglobin 31.6 pg (27.0-35.0); Mean Corpuscular Volume 96.5 fL (81-100); Platelet Count 198 bil/L (150-400)
[2016-12-04 05:21] LABS: BASOPHILS % (AUTO) 0.2 % (0-3); EOSINOPHILS % (AUTO) 2.1 % (0-5); MONOCYTES % (AUTO) 12.5 % (4-12)
--- NOTE | 2016-12-04 05:56 | NUR ---
NOC PT had a good night. Slept well after receiving tylenol and xanax at bedtime. PT commenced on 24 hour urine collection at 2020. Voids in BSC. HR is irregular upon auscultation as pt is in SR with many PAC's. Denies SOB. NO diarrhea noted. Afebrile this shift. PT did inform this RN that she had recently been drinking out of a stream with no filtration. PT reports that her family members have also had abdominal pain and diarrhea. THis RN texted MD prior authorization technician to request order for stool sample, but did not receive response. Will defer to day RN to speak with MD and request today. PT eager to go home now since as she reports she is feeling better. WIll continue with current POC.
--- NOTE | 2016-12-04 08:21 | PCM.PNMED ---
Subjective Date of Service Dec 04, 2016 Subjective Says had a good night. Denies any new issues/complaints Exam Vital Signs Vital Sign - Last Date Time Temp Pulse Resp B/P Pulse Ox O2 Delivery O2 Flow Rate FiO2 12/04/16 04:46 36.4 75 18 154/84 95 Room Air Intake and Output 12/03/16 12/03/16 12/04/16 Cumulative From/Thru 15:00 23:00 07:00 12/01/16 16:32 - 12/04/16 06:17 Intake Total 640 ml 1146 ml 6182 ml Output Total 500 ml 1300 ml 6825 ml Balance 140 ml -154 ml -643 ml Intake Oral 640 ml 1146 ml 4532 ml IV Total 1650 ml Output Urine Total 500 ml 1300 ml 6825 ml # Voids 1 3 # Bowel Movements 0 1 2 Exam General: Alert, Cooperative, No Acute Distress Head: Normal Eyes: Scleral Anicteric Nose: Mucous Membr Moist/Rivanna Mouth: Mucous Membr Moist/Rivanna Neck: Supple Chest & Lungs: Chest Wall Normal, Clear to auscultation bilat Cardiovascular: Regular Rate/Rhythm Abdomen: Non-tender, Non-distended, Normoactive bowel tones, Soft Extremities: No cyanosis/clubbing/edema bilat Neurological: Grossly Neurologically Intact, Normal Speech IVs and Medications Medications Reviewed: Medications were reviewed in detail Lab and Diagnostics Result Diagram: 12/04/16 0500 12/03/16 0520 Assessment & Plan 76 -year-old woman with a history of hypertension, atrial fibrillation on Eliquis, and anxiety, that presented to the emergency department with a one-day history of increased fatigue, fever, nausea, and shaking chills. # Acute fever and leukocytosis, present on admission. Unknown source as of yet. - Improving without further Abx - Sinus and neck CT negative despite report of sinus and neck pain - Followup pending cultures. - Not sure what they were trying to treat with Zosyn on admission so stopped Abx on 12/02 - ID consulted this AM. Will followup with recs # Acute SIRS, present on admission, under evaluation - On admit: WBC 21.6, R28, T39.5; LA 1.6; no identifiable source of infection so far - CXR: No acute disease despite repeat with 2vw on 12/02 - UA negative - No diarrhea - Sinus and neck imaging as noted above - Followup pending blood cultures - No further Abx for now until source of infection identified. # Acute on chronic hypertension. Poorly controlled. - Continue home medications - Given report of sweating and intermittent abdominal discomfort will try to rule out pheochromocytoma - Check serum/24h urine metanephrine # Acute Hyponatremia, present on admission, under evaluation - Resolved with IVF # Chronic Atrial fibrillation with history of RVR on long-term anticoagulation. - Rate controlled and stable. - Continue with home meds including Eliquis # Anxiety, chronic, presumed stable - Continue home meds Dispo: 1-2 days GI Prophylaxis: H2 vincent VTE Prophylaxis: Other (elliquis) VTE Mechanical Devices: Intermittant Pneumatic CD, Venous Foot Pump Resuscitation Status: DNR/DNI:Do Not Resuscitate/Intubate Sukhdev Damian Dec 04, 2016 08:21
[2016-12-04] MEDS: Diltiazem CD 120 mg ER24 Capsule PO SCH ×2 (09:51→19:57)
--- NOTE | 2016-12-04 16:33 | CONS ---
[address] [address] CONSULTATION REPORT PATIENT: MAXX ANDINO : 1940 MR#: [id number] ADMIT: 12/01/2016 JOB ID: [id number] DATE OF SERVICE: 12/04/[address] Damian for this timely consult. REASON FOR CONSULTATION: Unexplained fevers. HISTORY OF THE PRESENT ILLNESS: The patient is a 76-year-old woman whose past medical history includes AFib with history of RVR as well as hypertension, possible COPD, anxiety, and hyperlipidemia. The patient lives locally with two of her children at home, one of whom is her son with advanced HIV disease. She was admitted and discharged in early November with AFib and RVR. After that admission, there was some change in her medications and she was discharged on the in good condition. Following her discharge on the , the patient reported that she did not feel quite right but was uncertain as to how she was feeling bad. She reported just generalized malaise, fatigue, weakness, and she was seen at Urgent Care, but without any specific diagnosis on two different occasions. Finally on December 01, the patient felt dramatically worse in that she developed some chills, fever, worsening fatigue, stiff neck, and "mental fogginess." Because of all these symptoms, she was seen in the emergency department where she was found to have a high fever of 39.5 degrees and admitted for possible sepsis. Appropriate cultures were done and the patient was started on Zosyn as empiric therapy for what was thought to be possible sepsis. At the time she was admitted on December 01 though, it was unclear to the clinicians caring for her exactly where her infection might be present, as she did not seem to have focal symptoms related to sinusitis, pharyngitis, pneumonia, or UTI. Subsequently, the patient has dramatically improved over the last couple days but without any positive cultures or diagnostic studies to better define the nature of her infection. Because of her stiff neck, she had a CT scan of the neck which showed some small diffuse cervical adenopathy which was felt by the radiologist to be reactive. The patient has had no recent travel. She denies any contact with ill persons, aside from her son who has AIDS, who is not known to have any ongoing infections. She does not have any unusual exposures to animals, though they do have three dogs and a cat, and one of the dogs scratched her on the right forearm just prior to the onset of all these symptoms, but there was no dog bite nor has there been any cat scratch or cat bite. She and her family do use water from a local stream, but this water is filtered and then chlorinated and then boiled before she drinks it or washes dishes, making that unlikely as a source. PAST MEDICAL HISTORY: 1. 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 2. Hypertension. 3. History of pneumonia. 4. History of UTI. 5. History of depression and anxiety. SOCIAL HISTORY: The patient is a lifelong nonsmoker, nondrinker. As noted, she lives with her daughter and her ill son at [facility]. 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 FAMILY HISTORY: Negative for TB in first- or second-degree relatives. REVIEW OF SYSTEMS: The patient reports no significant headache today, no sinus symptoms though she has had a history of sinusitis in the past. No sore throat of significance. She notes that this stiff neck which she had before has resolved. She denies any notable swelling in the neck. No significant cough, shortness of breath or chest pain. No nausea, vomiting, diarrhea, dysuria, urgency, or frequency. No swelling of the joints. No unusual skin rashes and no additional fevers or chills since admission. PHYSICAL EXAMINATION: Reveals a moderately obese woman, BMI 33.5. Weight 91 kg. She is afebrile, temp 37, pulse 75, respiratory rate 20, blood pressure 134/56. She is saturating well on room air. She is in no acute distress. Sitting up at about a 40-degree angle in bed. Her mental status is completely clear. Head is without trauma. Sinuses are nontender. Eyes without conjunctivitis. Oral cavity without thrush or pharyngitis. She has very notable hirsutism, including an extensive higgins (for want of a better word). Her neck is completely supple. There is no palpable significant cervical adenopathy at this point. Lungs are clear. She has a 2/6 murmur heard best along the left lower sternal border which is systolic and which she reports is longstanding. She is not currently in AFib as she has a regular rate and rhythm. Her abdomen is soft and nontender. Somewhat obese. No Bennett catheter is present. No suprapubic tenderness. No adenopathy anywhere. No significant skin rash is noted. She has some mild nonpitting lower extremity edema. No evidence of synovitis. She has good pulses in her lower extremities. She has a single scratch on her right medial forearm which is healing and without evidence of purulence or infection secondary to dog scratching her. Neurologically, she can move everything and has reasonable strength. Labs include a white count that was 22,000 when she came in with left shift, now down to 12,600. Her creatinine 0.57. Procalcitonin on admission at highest 0.55, now down to 0.35. LFTs normal. Urinalysis without pyuria. Blood cultures negative. MRSA PCR negative and urine with mixed diane, though it would not matter as there was no pyuria. Chest x-ray from shortly after admission completely clear. I personally reviewed the chest x-ray on the view screen and concur. The CT of the neck showed clear sinuses and small reactive cervical lymph nodes. IMPRESSION: This is a bit of a confusing case of a woman who was hospitalized with atrial fibrillation with rapid ventricular response a few weeks ago. She then developed profound malaise and weakness without much in the way of focal symptoms and only to be readmitted on December 01 with high fever and some degree of stiff neck and minimal cervical adenopathy. An appropriate workup has been done and we have not found any clear etiology for her fevers or the notable leukocytosis she had on admission. Her white count does seem to be falling steadily and her procalcitonin has also dropped but was never very high. It is unclear to me what bacterial infection we are treating as we have pretty conclusive evidence she does not have sinusitis, pharyngitis, meningitis, pneumonia, endocarditis, or any gastrointestinal infection of note. She does drink stream water, but it is boiled before she drinks it, which makes it unlikely that this would be due to an intestinal infection. Also, what argues against that is the height of her white blood count. RECOMMENDATIONS: 1. I think it is reasonable to watch this patient off antibiotics. She has not received any antibiotics of any kind for about two days now, and she only received really a day or so of Zosyn when she first came in. Her white count and fever were impressive, but they are rapidly resolving without any specific antimicrobial therapy and we have no evident source of infection. 2. Will continue to follow this patient with you and I would be inclined to keep her here for another day or two. If the patient manifests no more fevers and continues to have a drop in white blood count, I think she could be safely discharged, but like Dr. Damian, I am puzzled by this presentation and her rapid improvement without the benefit of any antibiotics over the past couple days. One of my underlying concerns in this case would be endocarditis, and if she should worsen in any way before restarting antibiotics, we should get three sets of blood cultures from three different sites.
--- NOTE | 2016-12-04 18:39 | NUR ---
Headache Patient given Acetaminophen 650 mg for headache after lunch which is effective. Ambulating in the room and hallway with a steady gait. Denies any SOB. Eating and drinking well. Stool sample not indicated per Dr. Damian during rounds. Urine collection for Metanephrine will be done around 22:20 tonight. to continue following this case.
[2016-12-05 00:29] VITALS: BP 180/79; PULSE 78; RESP 17; O2SAT 96
[2016-12-05 05:51] VITALS: BP 158/65; PULSE 95; RESP 20; O2SAT 97
[2016-12-05] MEDS: ALPRAZolam 0.25 mg Tablet PO PRN (06:38)
[2016-12-05 07:38] LABS: BASOPHILS % (AUTO) 0.3 % (0-3); EOSINOPHILS % (AUTO) 2.6 % (0-5); MONOCYTES % (AUTO) 14.9 % (4-12); Mean Corpuscular Hemoglobin 31.1 pg (27.0-35.0); Mean Corpuscular Volume 96.9 fL (81-100); NEUTROPHILS % (AUTO) 65.5 % (40-74); Platelet Count 249 bil/L (150-400)
--- NOTE | 2016-12-05 08:29 | PCM.DIMED ---
Discharge Instructions Date of Service Dec 05, 2016 Dates of Hospitalization Dec 01, 2016 at 20:01 Discharge Diagnosis Discharge Diagnosis # Acute fever and leukocytosis, present on admission. Resolved. Unknown source. # Acute systemic inflammatory response syndrome (SIRS), present on admission. Resolved. # Acute on chronic hypertension. - Followup pending serum/24h urine metanephrine with primary care provider to rule out pheochromocytoma # Acute Hyponatremia, present on admission. Resolved. # Chronic Atrial fibrillation with history of RVR on long-term anticoagulation with Eliquis. - Rate controlled and stable. # Chronic anxiety, presumed stable Medication Instructions Additional med instructions Resume home medications as before Diet Discharge Diet: Low fat, Low Sodium, Heart Healthy Activity Discharge Activity: No restrictions Call your provider Call your provider for: Fever or Chills, Shortness of breath, Bleeding, Chest pain Patient Instructions Patient Instructions Seek immediate medical attention if any new or worsening signs or symptoms occur. Follow-up plan 1. Followup with your primary care provider (Vandana Vásquez) on at 2:20PM - Followup pending serum/24h urine metanephrine with primary care provider to rule out pheochromocytoma Follow-up Provider: Vandana Vásquez Masoud Dec 05, 2016 08:29
--- NOTE | 2016-12-05 08:36 | PCM.DC.MED ---
Discharge Summary Date of Service Dec 05, 2016 Dates of Hospitalization Date of Hospital Admission Dec 01, 2016 at 20:01 Date of Discharge: Dec 05, 2016 Providers: Admitting Physician: You Davis MD Primary Care Physician: Vandana Vásquez Attending Physician: Sukhdev Damian Diagnosis at Time of Discharge Diagnosis at Time of Discharge # Acute fever and leukocytosis, present on admission. Resolved. Unknown source. # Acute systemic inflammatory response syndrome (SIRS), present on admission. Resolved. # Acute on chronic hypertension. - Followup pending serum/24h urine metanephrine with primary care provider to rule out pheochromocytoma # Acute Hyponatremia, present on admission. Resolved. # Chronic Atrial fibrillation with history of RVR on long-term anticoagulation with Eliquis. - Rate controlled and stable. # Chronic anxiety, presumed stable Consultations 1. ID Procedures XRay, CTs & MRIs Date of Service: 12/02/16 0600 PROCEDURE: X-RAY CHEST, TWO VIEWS ([id number]) IMPRESSION: No acute cardiopulmonary disease. Dictated by: Darrin Still M.D. on 12/02/2016 at 12:46 Approved by: Darrin Still M.D. on 12/02/2016 at 12:48 Date of Service: 12/02/16 1418 PROCEDURE: CT NECK SOFT TISSUES WITH CONTRAST ([id number]) IMPRESSION: 1. Visualized sinuses are clear. No CT findings to explain fever and leukocytosis. 2. Bilateral small cervical lymph nodes are likely reactive. Dictated by: Darrin Still M.D. on 12/02/2016 at 18:45 Transcribed by: DAPHNEY on 12/02/2016 at 18:49 Approved by: Darrin Still M.D. on 12/02/2016 at 22:26 Brief History As noted in H&P by Dr. Hassan: Ms. Mancia is a pleasant 76 -year-old woman with a history of hypertension, atrial fibrillation on Eliquis, and anxiety, that presented to the emergency department with a one-day history of increased fatigue, fever, nausea, and shaking chills. Initial evaluation revealed a temperature of 39.5C, WBC 21.6, and respiratory rate 28. She was admitted for evaluation and treatment of SIRS , without identified source of infection at time of admission. - Hospital day 1 Ms. Mancia states that she has felt well since her recent discharge 2016, with hospitalization for atrial fibrillation with rapid ventricular rate. She notes today she woke up this morning, she developed shaking chills, fever , and general sense of uneasiness and feeling unwell. She denies any associated chest pain, palpitations, shortness of breath, dysuria, diarrhea, constipation, headache, acute vision changes, cough, or development of edema. She denies any recent sick contacts. Family present state that he noticed the patient this morning appearing extremely fatigued, with the appearance of falling asleep while sitting. Family and patient state that this presentation is new and unusual for her. She denies any recent medication changes since her recent discharge other than the change of anticoagulation to Eliquis. In the ED, T 39.5, P 97, RR 28, blood pressure 177/82, 97% on room air; initial lab results included WBC 21.6, with 87.9% neutrophils, hemoglobin 13.9, hematocrit 40.5, platelets 267; sodium 129, potassium 4.3, glucose 116, creatinine 0.65, lactic acid 1.6, LFTs within range, troponin negative; urinary studies obtained revealed a specimen with many epithelial cell contaminants, in addition to moderate occult blood, negative nitrite, trace leukocyte esterase, no white blood cells seen, and no bacteria noted. Urine cultures and blood cultures were obtained. CXR did not reveal any acute pathologies; Initial therapies included acetaminophen, Toradol, 1 L normal saline, and Zosyn. She is transported to the medical floor in stable condition. Hospital Course # Acute fever and leukocytosis, present on admission. Unknown source. - Resolved with minimal antibiotic treatment - Sinus and neck CT negative despite report of sinus and neck pain - Zosyn was given on admission but was stopped on 12/02/16 due to no clear source of infection - ID consulted and recommended to continue to observe off of antibiotics but to consider endocarditis should she deteriorate again. # Acute SIRS, present on admission. - On admit: WBC 21.6, R28, T39.5; LA 1.6; no identifiable source of infection so far - CXR: No acute disease despite repeat with 2vw on 12/02 - UA negative - No diarrhea - Sinus and neck imaging as noted above # Acute on chronic hypertension. Somewhat poorly controlled. - Continued home medications - Given report of sweating and intermittent abdominal discomfort trying to rule out pheochromocytoma - Serum/24h urine metanephrine have been collected and results still pending. Setup followup with PCP later this week to followup on these pending test results. # Acute Hyponatremia, present on admission, under evaluation - Resolved with IVF # Chronic Atrial fibrillation with history of RVR on long-term anticoagulation. - Rate controlled and stable. - Continued with home meds including Eliquis # Anxiety, chronic, presumed stable - Continued home meds by day of discharge patient denies any new issues/complaints and says feeling "good" and eager to go home Exam Vital Signs (Last) Date Time Temp Pulse Resp B/P Pulse Ox O2 Delivery O2 Flow Rate FiO2 12/05/16 05:51 36.5 95 20 158/65 97 Room Air Exam Lungs: CTA bilat CV: RRR Abd: Soft, NT, ND, +BS Test 12/01/16 17:55 12/01/16 23:05 12/02/16 05:05 12/03/16 05:20 Troponin T < 0.010ug/L (0.0-0.011) Urine Color Yellow (YELLOW) Urine Appearance Clear (CLEAR,HAZY) Urine pH 5.5 (5.0-8.0) Urine Specific [place] 1.020 (1.003-1.035) Urine Protein Tracemg/dL (NEG,TRACE) Urine Glucose (UA) Negativemg/dL (NEGATIVE) Urine Ketones 15mg/dL (NEGATIVE) Urine Occult Blood Small (NEGATIVE) Urine Nitrite Negative (NEGATIVE) Urine Bilirubin Negative (NEGATIVE) Urine Urobilinogen Normalmg/dL (NORMAL) Urine Leukocyte Esterase Negative (NEGATIVE) Urine RBC 3-10/hpf (0-2) Urine WBC 0-5/hpf (0-5) Urine Epithelial Cells Moderate/hpf (NONE-MOD) Urine Crystals None seen (NONE SEEN) Urine Bacteria Few/hpf (NONE-FEW) Urine Hyaline Casts None/lpf (NONE) Urine Granular Casts None seen (NONE SEEN) Urine Waxy Casts None seen (NONE SEEN) Urine Red Blood Cell Casts None seen (NONE SEEN) Urine White Blood Cell Casts None seen (NONE SEEN) Urine Mucus None seen (None Seen) Urine Trichomonas None seen (NONE SEEN) Urine Yeast None (NONE SEEN) Urinalysis Comment None Urine Culture Reflexed Not indicated Lactic Acid Level 1.1mmol/L (0.4-2.0) Total Bilirubin 0.6mg/dL (0.0-1.2) Aspartate Amino Transf (AST/SGOT) 25U/L (0-50) Alanine Aminotransferase (ALT/SGPT) 22U/L (0-32) Alkaline Phosphatase 65U/L (25-165) Total Protein 5.7g/dL (6.4-8.4) Albumin 3.4g/dL (3.4-5.0) Band Neutrophils % % (1-5) Prothrombin Time 9.9sec (8.1-12.5) Prothromb Time International Ratio 0.93ratio Activated Partial Thromboplast Time 26.1sec (22.8-33.0) Sodium Level 136mEq/L (134-144) Potassium Level 4.3mEq/L (3.5-5.2) Chloride Level 99mEq/L (97-108) Carbon Dioxide Level 22mmol/L (18-29) Blood Urea Nitrogen 13mg/dL (8-27) Creatinine 0.57mg/dL (0.57-1.00) Estimat Glomerular Filtration Rate 148mL/min (>59) Glucose Level 100mg/dL (60-99) Calcium Level 8.6mg/dL (8.5-10.1) Magnesium Level 2.2mg/dL (1.6-2.6) Procalcitonin 0.35ng/mL (0.00-0.08) Test 12/04/16 05:00 12/04/16 22:33 12/05/16 07:30 C-Reactive Protein 11.5mg/dL (0.0-0.5) White Blood Count 10.2th/mm3 (3.8-10.1) Red Blood Count 3.60mil/mm3 (3.90-5.20) Hemoglobin 11.2g/dL (12.0-15.6) Hematocrit 34.9% (35.0-46.0) Mean Corpuscular Volume 96.9fL (81-100) Mean Corpuscular Hemoglobin 31.1pg (27.0-35.0) Mean Corpuscular Hemoglobin Concent 32.1% (32.0-37.0) Red Cell Distribution Width 12.8% (12.3-15.4) Platelet Count 249bil/L (150-400) Neutrophils (%) (Auto) 65.5% (40-74) Lymphocytes (%) (Auto) 16.2% (14-46) Monocytes (%) (Auto) 14.9% (4-12) Eosinophils (%) (Auto) 2.6% (0-5) Basophils (%) (Auto) 0.3% (0-3) Discharge Medications Discharge Medications Apixaban (Eliquis) 5 Mg Tablet 5 MG PO BID (Reported) Aspirin (Aspirin) 81 Mg Tablet 81 MG PO DAILY (Reported) Cetirizine HCl (Zyrtec) 10 Mg Capsule 10 MG PO QPM (Reported) Diltiazem ER (Cardizem CD) 120 Mg Cap.er.24h 120 MG PO BID Prescribed by: LEIGHA OCAMPO DO Losartan Potassium (Losartan Potassium) 50 Mg Tablet 50 MG PO DAILY (Reported) Metoprolol Tartrate (Metoprolol Tartrate) 50 Mg Tablet 50 MG PO BID (Reported) Multivitamin (Multivitamins) 1 Each Capsule 1 EACH PO DAILY (Reported) Pravastatin (Pravastatin) 20 Mg Tablet 20 MG PO HS (Reported) As needed Alprazolam (Alprazolam) 0.25 Mg Tablet 0.25 MG PO BID PRN PRN For Anxiety ( Reported) Additional med instructions Resume home medications as before Followup Plan Disposition: Home Follow-up plan 1. Followup with your primary care provider (Vandana Vásquez) on at 2:20PM - Followup pending serum/24h urine metanephrine with primary care provider to rule out pheochromocytoma Discharge Diet: Low fat, Low Sodium, Heart Healthy Discharge Activity: No restrictions Patient Instructions Seek immediate medical attention if any new or worsening signs or symptoms occur. Follow-up Provider: Vandana Vásquez Time spent 35 min copies to: Vandana Vásquez Masoud Dec 05, 2016 08:36
[2016-12-05] MEDS: Diltiazem CD 120 mg ER24 Capsule PO SCH (08:55)
[2016-12-05 09:35] VITALS: BP 144/76; PULSE 75; RESP 18; O2SAT 97
--- NOTE | 2016-12-05 11:06 | NUR ---
Discharge Went over discharge instructions and followup appointment with patient and daughter both verbally acknowledged understanding. Removed tele and IV. notified prior to discharge that patient the has gained roughly 7 lbs in the last two days. Pt was still discharged. Pt left in wheelchair with [employer]. No s/s of distress at time of dc.
--- NOTE | 2016-12-05 11:32 | NUR ---
Social Work-discharge: Data:EMR Reviewed. Pt is on day 4 of hospitalization for fever per H&P. Pt is medically stable for discharge. Pt resides at home with her daughter and has been up independent in her room. No discharge needs identified. All updated and agreeable to plan. Assessment:Pt who is independent at baseline. Plan:Pt to discharge home today via POV. No discharge needs identified. All updated and agreeable to plan. DELMAR Fernandez
== END 2016-12-05 11:25 | disposition home or self-care (01) | DRG 815 ==
LOC: SED 16:28 → MPC 20:01 → OBSVTOIN 20:01
PROVIDERS: ADMIT Hospitalist; ATTEND Internal Medicine
DX: D72.828 Other elevated white blood cell count (principal); E87.1 Hypo-osmolality and hyponatremia; R65.10 Systemic inflammatory response syndrome (SIRS) of non-infectious origin without acute organ dysfunction; R50.9 Fever, unspecified; Z79.82 Long term (current) use of aspirin; Z79.01 Long term (current) use of anticoagulants; F41.9 Anxiety disorder, unspecified; Z66 Do not resuscitate; I48.2 Chronic atrial fibrillation; I10 Essential (primary) hypertension